=== PATIENT | female | born 1935 | race Caucasian/White ===

== ENCOUNTER 2017-10-14 07:02 | Day surgery (SDC) | payer OTHER ==
[2017-10-14] MEDS ORDERED: BUPIVACAINE 0.25% PF 10 ML VIAL ONE (07:45)
[2017-10-14] MEDS ORDERED: LIDOCAINE 2% MPF 5 ML VIAL ONE (07:45)
[2017-10-14] MEDS ORDERED: TETRACAINE HCL 0.5% 2ML OPTH ONE (07:46)
[2017-10-14] MEDS ORDERED: NA CHLORIDE 0.9% 500 ML ONE (07:46)
[2017-10-14] MEDS ORDERED: LIDOCAINE HCL/PF 3.5% OPTH GEL ONE (07:51)
[2017-10-14] MEDS ORDERED: KETOROLAC OPTHALMIC 5 ML BOT ONE (07:55)
[2017-10-14] MEDS: CYCLOPENTOLATE 1% OPTH 2 ML ONE ×3 (08:00→08:10)
[2017-10-14] MEDS: PHENYLEPHRINE 10% OPTH 5ML ONE ×3 (08:00→08:10)
[2017-10-14] MEDS ORDERED: NS 0.9% VIAL 10 ML ONE (08:04)
[2017-10-14] MEDS ORDERED: EPINEPHRINE/PF 1 MG/ML AMP ONE (08:04)
[2017-10-14] MEDS ORDERED: DUOVISC 1 KIT OPTH ONE (08:05)
[2017-10-14] MEDS ORDERED: BALANCED SALT IRRIG PLAIN 500 ML BTL IRR ONE (08:05)
[2017-10-14] MEDS ORDERED: LIDOCAINE 1% MPF 2 ML AMPULE ONE (08:06)
[2017-10-14] MEDS ORDERED: MOXIFLOXACIN HCL 10 DROPS/ML **OR USE OPTH ONE (08:07)
[2017-10-14 08:22] VITALS: O2SAT 98
[2017-10-14] MEDS ORDERED: FENTANYL CITR 100 MCG/2 ML ONE (08:37)
[2017-10-14] MEDS ORDERED: MIDAZOLAM HCL 2 MG/2 ML INJ ONE (08:38)
[2017-10-14 09:14] VITALS: BP 170/69; TEMP 97.6
--- NOTE | 2017-10-14 09:57 | P.BOP ---
Preoperative diagnosis: Nuclear sclerotic cataract OS Postoperative diagnosis: Same Primary procedure: Phacoemulsification with IOL OS Estimated blood loss: None Anesthesia: Local (Topical with anesthesia for cataract surgery) Complications: None Implants: ZCB00 +22.0 Transferred to: Other (Day surgery) Condition: Good
--- NOTE | 2017-10-14 20:58 | OP ---
Date of Procedure: 10/14/2017 Surgeon: Emma Randolph MD Anesthesiologist: 1. Carlie Tran CRNA. 2. Lukasz Shay M.D. Preoperative Diagnosis: Nuclear sclerotic cataract, OS (left eye). Operation Performed: Phacoemulsification with intraocular lens implant, OS eye (left eye). Anesthesia: Per cataract surgery Complications: None. Description Of Procedure: In the operating room the patient was prepped and draped in the usual ster ile fashion for ophthalmic surgery. A lid speculum was placed in the OS. Two paracentesis sites wer e made superiorly and inferiorly in the limbal cornea. Viscoat was placed in the anterior chamber an d a crescent blade was used to make a corneal groove and tunnel, and a keratome was used to enter the anterior chamber. Provisc was placed in the anterior chamber and a 360 degree capsulotomy was perfo rmed with a cystitome. The lens was hydrodissected with BSS and rotated freely. The lens was remove d with a stop and chop technique. A 5.20 phaco CDE was used to remove the lens. Residual cortex was removed with the irrigation and aspiration. Provisc was placed in the capsular bag. A ZCB00 + 22.0 diopter lens was placed in the capsular bag without complications. Irrigation and aspiration were u sed to remove residual viscoelastic. The paracentesis sites were hydrated with BSS. The wound and p aracentesis sites were inspected and found to be watertight. Vigamox 0.07 cc was placed intracameral ly at the end of the procedure. The eye was irrigated with balanced salt solution. The eye was patc hed with a soft cotton patch and Pereira metal shield. The patient was returned to day surgery in good condition. Comments: Akten was placed in the eye in Day Surgery and irrigated out of the eye with BSS in the OR . Preservative free 1% lidocaine was placed in the anterior chamber prior to Viscoat. Discharge Instructions: Ms. Omer is discharged to home in good condition and is to follow up with Dr. Randolph in the morning. RAMANDEEP/MODL Voice ID: [id number] Report ID: [id number]
== END 2017-10-14 09:33 | disposition home or self-care (01) ==
LOC: OR 07:02
PROVIDERS: ATTEND Ophthalmology Retina Specialist
PROC: 08RK3JZ Replacement of Left Lens with Synthetic Substitute, Percutaneous Approach (ICD-10-PCS; principal; 2017-10-14 08:30)
DX: H25.12 Age-related nuclear cataract, left eye (principal); H04.123 Dry eye syndrome of bilateral lacrimal glands; H43.813 Vitreous degeneration, bilateral; M19.90 Unspecified osteoarthritis, unspecified site; Z88.6 Allergy status to analgesic agent; Z88.8 Allergy status to other drugs, medicaments and biological substances; Z82.3 Family history of stroke; Z82.49 Family history of ischemic heart disease and other diseases of the circulatory system
CPT/HCPCS: 66984; J0171; J2001; J2250; J3010

== ENCOUNTER 2017-10-30 22:23 | Emergency (ER) | payer OTHER ==
[2017-10-30] MEDS ORDERED: NA CHLORIDE 0.9% 500 ML ONE (23:23)
[2017-10-30] MEDS ORDERED: ONDANSETRON 4 MG/2 ML VIAL ONE (23:23)
[2017-10-30 23:36] LABS: Potassium 3.6 mEq/L (3.6-5.0)
--- NOTE | 2017-10-31 00:49 | EDPHYS ---
Physician Documentation [facility] Name: Serenity Omer Age: 82 yrs Sex: Female : 1935 Arrival Date: 10/30/2017 Time: 22:23 Bed 19 Private MD: ED Physician Hank Dowd HPI: 10/30 23:10 This 82 yrs old Female presents to ER via Wheelchair with complaints of rn Nausea, Allergic Reaction. 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 . Historical: - Allergies: 22:41 all dyes and preservatives; jd3 22:41 Iodine; jd3 - Home Meds: 22:41 aspirin 81 mg Oral chew 1 tab once daily [Active]; jd3 - PMHx: 22:41 Atrial Fib; jd3 - PSHx: 22:41 None; jd3 - Immunization history:: Adult Immunizations up to date. - Social history:: Smoking status: Patient/guardian denies using tobacco. - Family history:: not pertinent. - Hospitalizations: : No recent hospitalization is reported. ROS: 23:10 Constitutional: Negative for fever, chills, and weight loss, Eyes: Negative for injury, rn pain, redness, and discharge, Neck: Negative for injury, pain, and swelling, Cardiovascular: Negative for chest pain, palpitations, and edema, Respiratory: Negative for shortness of breath, cough, wheezing, and pleuritic chest pain, Abdomen/GI: Negative for abdominal pain, vomiting, diarrhea, and constipation, Back: Negative for injury and pain, MS/Extremity: Negative for injury and deformity, Skin: Negative for injury, rash, and discoloration, Neuro: Negative for headache, weakness, numbness, tingling, and seizure. Exam: 23:10 Constitutional: This is a well developed, well nourished patient who is awake, alert, rn and in no acute distress. Head/Face: Normocephalic, atraumatic. Eyes: Pupils equal round and reactive to light, extra-ocular motions intact. Lids and lashes normal. Conjunctiva and sclera are non-icteric and not injected. Cornea within normal limits. Periorbital areas with no swelling, redness, or edema. Neck: Trachea midline, no thyromegaly or masses palpated, and no cervical lymphadenopathy. Supple, full range of motion without nuchal rigidity, or vertebral point tenderness. No Meningismus. Cardiovascular: Regular rate and rhythm with a normal S1 and S2. No gallops, murmurs, or rubs. Normal PMI, no JVD. No pulse deficits. Respiratory: Lungs have equal breath sounds bilaterally, clear to auscultation and percussion. No rales, rhonchi or wheezes noted. No increased work of breathing, no retractions or nasal flaring. Abdomen/GI: Soft, non-tender, with normal bowel sounds. No distension or tympany. No guarding or rebound. No evidence of tenderness throughout. Skin: Warm, dry with normal turgor. Normal color with no rashes, no lesions, and no evidence of cellulitis. MS/ Extremity: Pulses equal, no cyanosis. Neurovascular intact. Full, normal range of motion. Equal circumference. Neuro: Awake and alert, GCS 15, oriented to person, place, time, and situation. Cranial nerves II-XII grossly intact. Motor strength 5/5 in all extremities. Sensory grossly intact. Cerebellar exam normal. Vital Signs: 22:41 BP 124 / 51; Pulse 51; Resp 18 S; Temp 97.7(O); Pulse Ox 98% on R/A; Weight 63.5 kg jd3 (R); Height 5 ft. 7 in. (170.18 cm) (R); Pain 0/10; 10/31 00:00 BP 164 / 66; Pulse 51; Resp 17 S; Pulse Ox 100% on R/A; Pain 0/10; jd3 10/30 22:41 Body Mass Index 21.93 (63.50 kg, 170.18 cm) jd3 MDM: 10/30 22:35 Patient medically screened. rn 10/31 00:47 Differential diagnosis: medication adverse reaction, UTI. Data reviewed: vital signs, rn nurses notes, lab test result(s), EKG, and as a result, I will discharge patient. Counseling: I had a detailed discussion with the patient and/or guardian regarding: the historical points, exam findings, and any diagnostic results supporting the discharge/admit diagnosis, lab results, the need for outpatient follow up, to return to the emergency department if symptoms worsen or persist or if there are any questions or concerns that arise at home. Response to treatment: the patient's condition has returned to base line, the patient is now symptom free, patient is well hydrated. and as a result, I will discharge patient. Special discussion: I discussed with the patient/guardian in detail that at this point there is no indication for admission to the hospital. It is understood, however, that if the symptoms persist or worsen the patient needs to return immediately for re-evaluation. 10/30 22:50 Order name: Basic Metabolic Panel; Complete Time: 23:40 rn 10/31 00:49 Order name: Urine Dipstick--Ancillary (enter results) fc 10/30 22:50 Order name: EKG; Complete Time: 22:50 rn 10/30 22:50 Order name: IV Start; Complete Time: 23:02 rn 10/30 22:50 Order name: Urine Dipstick-Ancillary (obtain specimen); Complete Time: 00:49 rn 10/30 22:50 Order name: EKG - Nurse/Tech; Complete Time: 23:02 rn Administered Medications: 10/30 23:12 Drug: Zofran 4 mg Route: IVP; Site: right antecubital; jd3 23:32 Follow up: Response: Nausea is decreased jd3 23:12 Drug: NS 0.9% 500 ml Route: IV; Rate: bolus; Site: right antecubital; jd3 23:32 Follow up: Response: No adverse reaction; IV Status: Completed infusion; IV Intake: jd3 500ml 10/31 00:55 Drug: Macrobid 100 mg Route: PO; jd3 00:55 Follow up: Response: Medication administered at discharge. jd3 Disposition: 10/31/17 00:48 Discharged to Home. Impression: Medication Adverse Reaction, Urinary tract infection, site not specified. - Condition is Stable. - Discharge Instructions: Urinary Tract Infection. - Prescriptions for Macrobid 100 mg Oral Capsule - take 1 capsule by ORAL route every 12 hours for 7 days; 14 capsule. - Medication Reconciliation Form, Thank You Letter, Antibiotic Education, Prescription Opioid Use form. - Follow up: Private Physician; When: As needed; Reason: Recheck today's complaints, Re-evaluation by your physician. - Problem is new. - Symptoms have improved. Signatures: Dispatcher [employer] EDMS Dowd Hank, MD MD rn Ball, VJ Davidson RN jd3
--- NOTE | 2017-10-31 00:49 | ER ---
Nurse's Notes [facility] Name: Serenity Omer Age: 82 yrs Sex: Female : 1935 Arrival Date: 10/30/2017 Time: 22:23 Bed 19 Private MD: Diagnosis: Medication Adverse Reaction;Urinary tract infection, site not specified Presentation: 10/30 22:37 Presenting complaint: Patient states: "I took a medication, Ropinirole, and I got very jd3 dizzy and nauseous. I think I might be allergic.". Transition of care: patient was not received from another setting of care. Onset of symptoms was October 30, 2017. Care prior to arrival: None. 22:37 Method Of Arrival: Wheelchair jd3 22:37 Acuity: JOSE 3 jd3 Historical: - Allergies: 22:41 all dyes and preservatives; jd3 22:41 Iodine; jd3 - Home Meds: 22:41 aspirin 81 mg Oral chew 1 tab once daily [Active]; jd3 - PMHx: 22:41 Atrial Fib; jd3 - PSHx: 22:41 None; jd3 - Immunization history:: Adult Immunizations up to date. - Social history:: Smoking status: Patient/guardian denies using tobacco. - Family history:: not pertinent. - Hospitalizations: : No recent hospitalization is reported. Screenin:44 Abuse screen: Denies threats or abuse. Nutritional screening: No deficits noted. jd3 Tuberculosis screening: No symptoms or risk factors identified. Fall Risk No fall in past 12 months (0 pts). Gait- Weak (10 pts.). Total George Fall Scale indicates No Risk (0-24 pts). Assessment: 22:42 General: Appears in no apparent distress. uncomfortable, Behavior is calm, cooperative, jd3 appropriate for age. Pain: Denies pain. Neuro: Neuro: Level of Consciousness is awake, alert, obeys commands, Oriented to person, place, time, situation. Cardiovascular: Heart tones S1 S2 present Capillary refill < 3 seconds. Respiratory: Airway is patent Respiratory effort is even, unlabored, Respiratory pattern is regular, symmetrical, Breath sounds are clear bilaterally. GI: Abdomen is round Bowel sounds present X 4 quads. Abd is soft and non tender X 4 quads. Reports nausea. : No signs and/or symptoms were reported regarding the genitourinary system. EENT: No signs and/or symptoms were reported regarding the EENT system. Derm: Skin is intact, Skin is dry, Skin is normal, Skin temperature is warm. Musculoskeletal: Circulation, motion, and sensation intact. Range of motion: intact in all extremities. 10/31 00:00 Reassessment: Patient appears in no apparent distress at this time. Patient and/or jd3 family updated on plan of care and expected duration. Pain level reassessed. Patient is alert, oriented x 3, equal unlabored respirations, skin warm/dry/pink. Patient states feeling better. 01:04 Reassessment: Patient appears in no apparent distress at this time. Patient and/or jd3 family updated on plan of care and expected duration. Pain level reassessed. Patient is alert, oriented x 3, equal unlabored respirations, skin warm/dry/pink. pt reported understanding of discharge instructions, even and steady gait upon discharge Patient states feeling better. Vital Signs: 10/30 22:41 BP 124 / 51; Pulse 51; Resp 18 S; Temp 97.7(O); Pulse Ox 98% on R/A; Weight 63.5 kg jd3 (R); Height 5 ft. 7 in. (170.18 cm) (R); Pain 0/10; 10/31 00:00 BP 164 / 66; Pulse 51; Resp 17 S; Pulse Ox 100% on R/A; Pain 0/10; jd3 10/30 22:41 Body Mass Index 21.93 (63.50 kg, 170.18 cm) jd3 ED Course: 10/30 22:23 Patient arrived in ED. ds1 22:26 Stuart Ball, RN is Primary Nurse. jd3 22:35 Hank Dowd MD is Attending Physician. rn 22:40 Triage completed. jd3 22:42 Arm band placed on. jd3 22:45 Patient has correct armband on for positive identification. Bed in low position. Call j light in reach. Side rails up X2. Adult w/ patient. 23:03 Initial lab(s) drawn, by me, sent to lab. Inserted saline lock: 20 gauge in right cb2 forearm, using aseptic technique. Blood collected. 10/31 01:03 No provider procedures requiring assistance completed. IV discontinued, intact, jd3 bleeding controlled, No redness/swelling at site. Pressure dressing applied. Administered Medications: 10/30 23:12 Drug: Zofran 4 mg Route: IVP; Site: right antecubital; jd3 23:32 Follow up: Response: Nausea is decreased jd3 23:12 Drug: NS 0.9% 500 ml Route: IV; Rate: bolus; Site: right antecubital; jd3 23:32 Follow up: Response: No adverse reaction; IV Status: Completed infusion; IV Intake: jd3 500ml 10/31 00:55 Drug: Macrobid 100 mg Route: PO; jd3 00:55 Follow up: Response: Medication administered at discharge. jd3 Intake: 10/30 23:32 IV: 500ml; Total: 500ml. jd3 Outcome: 10/31 00:48 Discharge ordered by . rn 01:03 Discharged to home ambulatory, with family. jd3 01:03 Condition: stable 01:03 Discharge instructions given to patient, friend, Instructed on discharge instructions, follow up and referral plans. medication usage, Demonstrated understanding of instructions, follow-up care, medications, Prescriptions given X 1. 01:05 Patient left the ED. jd3 Signatures: Annalee Pena ds1 Hank Dowd MD MD rn Bulan, Christian cb2 Davies, Jonathon, RN RN jd3 Corrections: (The following items were deleted from the chart) 10/30 23:32 23:31 Response: No adverse reaction; Nausea is decreased; IV Status: Completed jd3 infusion; IV Intake: 500ml jd3
[2017-10-31] MEDS ORDERED: NITROFURAN MACRO 100 MG CAP PO ONE (01:13)
[2017-10-31 01:22] LABS: Urine Blood NEGATIVE (NEG); Urine Glucose NEGATIVE (NEG); Urine Protein NEGATIVE (NEG); Urine Specific Gravity 1.015 (1.005-1.030); Urine pH 7.5 (5.0-7.0)
[2017-10-31 01:27] VITALS: TEMP 97.7
[2017-10-31 01:28] VITALS: BP 164/66; O2SAT 100
--- NOTE | 2017-10-31 10:08 | EKG ---
Test Date: 2017-10-30 Test Time: 22:58:15 Booster Operator: NOREEN MEASUREMENT RESULTS: Intervals: Rate: 49 AK: 280 QRSD: 88 QT: 476 QTc: 429 [place]: P: 13 AK: 280 QRS: -11 T: 24 INTERPRETIVE STATEMENTS: Sinus bradycardia with 1st degree AV block Anteroseptal infarct, age undetermined Abnormal ECG Compared to ECG 04/07/2017 06:54:31 Atrial premature complex(es) no longer present Myocardial infarct finding still present Electronically Signed On 10-31-17 10:07:40 CDT by Irvin Stallings
== END 2017-10-31 01:05 | disposition home or self-care (01) ==
LOC: ER 22:23
DX: N39.0 Urinary tract infection, site not specified (principal); T42.8X5A Adverse effect of antiparkinsonism drugs and other central muscle-tone depressants, initial encounter; Z79.82 Long term (current) use of aspirin; I48.91 Unspecified atrial fibrillation; Z91.048 Other nonmedicinal substance allergy status
CPT/HCPCS: 36415; 80048; 81003; 93005; 96374; 99284; J2405

== ENCOUNTER 2018-04-05 10:37 | Observation (INO) | payer OTHER ==
[2018-04-05 11:29] LABS: Absolute Lymphocytes (CBC) 0.9 K/uL (0.7-4.9); Absolute Monocytes 0.5 K/uL (0.1-1.3); Absolute Neutrophil 1.7 K/uL (1.8-8.0); Basophils % 0.4 % (0-1.3); Eosinophils % 1.4 % (0-4.4); Hematocrit 37.1 % (36.0-45.0); Lymphocytes % 28.8 % (15.3-44.8); MCH 34.7 pg (27.0-35.0); MCV 98.6 fL (80-100); Monocytes % 16.3 % (3.3-12.3); RBC Red Blood Cell Count 3.76 M/uL (3.86-4.86)
[2018-04-05 11:48] LABS: ALT/SGPT 26 U/L (12-78); AST/SGOT 28 U/L (15-37); Albumin 4.1 g/dL (3.4-5.0); Alkaline Phosphatase 87 U/L (45-117); BUN Blood Urea Nitrogen 17 mg/dL (7-18); Bicarbonate 27 mmol/L (21-32); Bilirubin Direct 0.2 mg/dL (0-0.2); Bilirubin Total 0.7 mg/dL (0.2-1.0); CKMB Creatine Kinase MB 2.5 ng/mL (0.3-3.6); Creatine Phosphokinase 110 U/L (26-192); Glucose Level 89 mg/dL (74-106); NT PRO-BNP 442 pg/mL (<450); Potassium 4.1 mmol/L (3.5-5.1); Protein, Total 8.2 g/dL (6.4-8.2); Sodium Level 130 mmol/L (136-145); Troponin (Emerg Dept Use Only) < 0.02 ng/mL (0.0-0.045)
[2018-04-05 12:06] LABS: Blood Morphology Comment NOT SEEN (NOT SEEN); Platelet Estimate ADEQ; Urine White Blood Cell Casts OK
--- NOTE | 2018-04-05 12:18 | RAD REPORT ---
EXAM DESCRIPTION: RAD - Chest Single View - 04/05/2018 12:09 pm CLINICAL HISTORY: CHEST PAIN Chest pain. COMPARISON: Chest Single View dated 04/06/2017 FINDINGS: Portable technique limits examination quality. The lungs are grossly clear. The heart is normal in size. No displaced fractures.Tortuous thoracic ao rta. Significant scoliosis of the thoracic spine with concavity to the right. IMPRESSION: No acute intrathoracic process suspected.
--- NOTE | 2018-04-05 12:40 | EDPHYS ---
Physician Documentation [facility] Name: Serenity Omer Age: 83 yrs Sex: Female : 1935 Arrival Date: 04/05/2018 Time: 10:39 Bed 2 Private MD: Aidan Rodriguez R ED Physician Hank Dowd HPI: 04/05 11:05 This 83 yrs old Female presents to ER via Ambulatory with complaints of Chest rn Pain, Irregular Heartbeat. 11:05 The patient or guardian reports chest pain that is located primarily in the substernal rn area. Onset: this morning. The pain does not radiate. Associated signs and symptoms: Pertinent positives: nausea, shortness of breath, Pertinent negatives: cough, diaphoresis, lower extremity swelling, recent travel, syncope, vomiting. The chest pain is described as a heaviness, a pressure. Duration: The patient or guardian reports a single episode, that is still ongoing. Severity of pain: At its worst the pain was moderate in the emergency department the pain has improved. The patient has not experienced similar symptoms in the past. The patient has not recently seen a physician. Historical: - Allergies: 10:54 all dyes and preservatives; sr5 10:54 Iodine; sr5 - Home Meds: 10:54 aspirin 81 mg Oral chew 1 tab once daily [Active]; omeprazole [Active]; sr5 - PMHx: 10:54 Atrial Fib; sr5 - PSHx: 10:54 None; sr5 - Immunization history:: Adult Immunizations up to date. - Family history:: not pertinent. - Social history:: Smoking status: Patient/guardian denies using tobacco. - Ebola Screening: : No symptoms or risks identified at this time. - Hospitalizations: : No recent hospitalization is reported. ROS: 11:05 Constitutional: Negative for fever, chills, and weight loss, Eyes: Negative for injury, rn pain, redness, and discharge, Neck: Negative for injury, pain, and swelling, Cardiovascular: + chest tightness Respiratory: + sob, no cough Abdomen/GI: Negative for abdominal pain, vomiting, diarrhea, and constipation, MS/Extremity: Negative for injury and deformity, Skin: Negative for injury, rash, and discoloration, Neuro: Negative for headache, weakness, numbness, tingling, and seizure. Exam: 11:25 Constitutional: This is a well developed, well nourished patient who is awake, alert, rn and in no acute distress. Head/Face: Normocephalic, atraumatic. Eyes: Pupils equal round and reactive to light, extra-ocular motions intact. Lids and lashes normal. Conjunctiva and sclera are non-icteric and not injected. Cornea within normal limits. Periorbital areas with no swelling, redness, or edema. Neck: Trachea midline, no thyromegaly or masses palpated, and no cervical lymphadenopathy. Supple, full range of motion without nuchal rigidity, or vertebral point tenderness. No Meningismus. Cardiovascular: Regular rate and rhythm with a normal S1 and S2. No gallops, murmurs, or rubs. Normal PMI, no JVD. No pulse deficits. Respiratory: Lungs have equal breath sounds bilaterally, clear to auscultation and percussion. No rales, rhonchi or wheezes noted. No increased work of breathing, no retractions or nasal flaring. Abdomen/GI: Soft, non-tender MS/ Extremity: Pulses equal, no cyanosis. Neurovascular intact. Full, normal range of motion. Equal circumference. Neuro: Awake and alert, GCS 15, oriented to person, place, time, and situation. Cranial nerves II-XII grossly intact. Motor strength 5/5 in all extremities. Sensory grossly intact Vital Signs: 10:54 BP 175 / 81; Pulse 61; Resp 14; Temp 98.2; Pulse Ox 100% ; Weight 63.5 kg; Height 5 ft. sr5 7 in. (170.18 cm); Pain 0/10; 11:45 BP 190 / 65; Pulse 52; Resp 14; Pulse Ox 100% on R/A; hb 10:54 Body Mass Index 21.93 (63.50 kg, 170.18 cm) sr5 MDM: 10:52 Patient medically screened. rn 12:38 Differential diagnosis: acute myocardial infarction, acute pericarditis, anxiety, rn coronary artery disease chest wall pain, costochondritis, gastritis, pleurisy, pneumonia, pneumothorax, stable angina. Data reviewed: vital signs, nurses notes, lab test result(s), EKG, radiologic studies, plain films, and as a result, I will admit patient. Counseling: I had a detailed discussion with the patient and/or guardian regarding: the historical points, exam findings, and any diagnostic results supporting the discharge/admit diagnosis, lab results, radiology results, the need for further work-up and treatment in the hospital. Response to treatment: the patient's symptoms have mildly improved after treatment, and as a result, I will admit patient. Admission orders: after a detailed discussion of the patient's condition and case, the admit orders are written by me. 04/05 11:03 Order name: Basic Metabolic Panel; Complete Time: 11:51 rn 04/05 11:03 Order name: CBC with Diff; Complete Time: 12: rn 04/05 11:03 Order name: Ckmb; Complete Time: : rn 04/05 11:03 Order name: CPK; Complete Time: : rn 04/05 11:03 Order name: LFT's; Complete Time: : rn 04/05 11:03 Order name: NT PRO-BNP; Complete Time: 11: rn 04/05 10:55 Order name: EKG; Complete Time: 10:56 sr5 04/05 10:55 Order name: EKG - Nurse/Tech; Complete Time: 11:15 sr5 04/05 11:03 Order name: Troponin (emerg Dept Use Only); Complete Time: 11:51 rn 04/05 11:03 Order name: XRAY Chest (1 view); Complete Time: 12:19 rn 04/05 11:03 Order name: Cardiac monitoring; Complete Time: 11:15 rn 04/05 11:03 Order name: IV Saline Lock; Complete Time: 11:15 rn 04/05 11:03 Order name: Labs collected and sent; Complete Time: 11: rn 04/05 11:44 Order name: CBC Smear Scan; Complete Time: 12:07 EDMS 04/05 11:03 Order name: O2 Per Protocol; Complete Time: 12: rn 04/05 11:03 Order name: O2 Sat Monitoring; Complete Time: 12:08 rn Administered Medications: No medications were administered Disposition: 04/05/18 12:39 Hospitalization ordered by Aidan Rodriguez for Observation. Preliminary diagnosis are Chest pain, unspecified, Bradycardia, unspecified. - Bed requested for Telemetry/MedSurg (observation). - Status is Observation. iw - Condition is Stable. - Problem is new. - Symptoms have improved. UTI on Admission? No Signatures: Dispatcher [employer] EDBrooklyn Canas, RN RN iw Hank Dowd MD MD rn Baxter, Heather, RN RN Eddy Mercado RN RN sr5 Haleigh Cruz Corrections: (The following items were deleted from the chart) 12:58 12:39 Hospitalization Ordered by Aidan Rodriguez MD for Observation. Preliminary diagnosis eb is Chest pain, unspecified; Bradycardia, unspecified. Bed requested for Telemetry/MedSurg (observation). Status is Observation. Condition is Stable. Problem is new. Symptoms have improved. UTI on Admission? No. rn 14:00 12:58 04/05/2018 12:39 Hospitalization Ordered by Aidan Rodriguez MD for Observation. iw Preliminary diagnosis is Chest pain, unspecified; Bradycardia, unspecified. Bed requested for Telemetry/MedSurg (observation). Status is Observation. Condition is Stable. Problem is new. Symptoms have improved. UTI on Admission? No. eb
--- NOTE | 2018-04-05 12:40 | ER ---
Nurse's Notes [facility] Name: Serenity Omer Age: 83 yrs Sex: Female : 1935 Arrival Date: 04/05/2018 Time: 10:39 Bed 2 Private MD: Aidan Rodriguez R Diagnosis: Chest pain, unspecified;Bradycardia, unspecified Presentation: 04/05 10:53 Presenting complaint: Patient states: chest pressure/SOB started early this AM. sr5 PMH=afib, pt AA\T\Ox4, equal unlabored resp, skin warm/dry/nc. Transition of care: patient was not received from another setting of care. Onset of symptoms was April 05, 2018. Care prior to arrival: None. 10:53 Acuity: JOSE 2 sr5 10:53 Method Of Arrival: Ambulatory sr5 11:00 Risk Assessment: Do you want to hurt yourself or someone else? Patient reports no hb desire to harm self or others. Initial Sepsis Screen: Does the patient meet any 2 criteria? No. Patient's initial sepsis screen is negative. Does the patient have a suspected source of infection? No. Patient's initial sepsis screen is negative. Triage Assessment: 10:54 General: Appears in no apparent distress. Behavior is calm, cooperative. Pain: Denies sr5 pain. Complains of pain in chest Quality of pain is described as pressure. Cardiovascular: Patient's skin is warm and dry. Respiratory: Respiratory effort is even, unlabored, Respiratory pattern is regular, symmetrical. Historical: - Allergies: 10:54 all dyes and preservatives; sr5 10:54 Iodine; sr5 - Home Meds: 10:54 aspirin 81 mg Oral chew 1 tab once daily [Active]; omeprazole [Active]; sr5 - PMHx: 10:54 Atrial Fib; sr5 - PSHx: 10:54 None; sr5 - Immunization history:: Adult Immunizations up to date. - Family history:: not pertinent. - Social history:: Smoking status: Patient/guardian denies using tobacco. - Ebola Screening: : No symptoms or risks identified at this time. - Hospitalizations: : No recent hospitalization is reported. Screenin:00 Abuse screen: Denies threats or abuse. Denies injuries from another. Nutritional hb screening: No deficits noted. Tuberculosis screening: No symptoms or risk factors identified. Fall Risk Total George Fall Scale indicates No Risk (0-24 pts). Assessment: 11:00 General: Appears in no apparent distress. Behavior is calm, cooperative. Pain: hb Complains of pain in chest Pain does not radiate. Pain currently is 0 out of 10 on a pain scale. at worst was 3 out of 10 on a pain scale. Quality of pain is described as pressure, Pain began gradually, 4 hours ago. Neuro: Level of Consciousness is awake, alert, obeys commands, Oriented to person, place, time, situation. Cardiovascular: Heart tones S1 S2 present Capillary refill < 3 seconds Patient's skin is warm and dry. Respiratory: Airway is patent Trachea midline Respiratory effort is even, unlabored, Respiratory pattern is regular, symmetrical, Breath sounds are clear bilaterally. GI: No signs and/or symptoms were reported involving the gastrointestinal system. : No signs and/or symptoms were reported regarding the genitourinary system. EENT: No signs and/or symptoms were reported regarding the EENT system. Derm: No signs and/or symptoms reported regarding the dermatologic system. Skin is intact, is healthy with good turgor. 11:40 Reassessment: HR 35-55, Dr. Dowd aware. No new orders at this time. hb 12:00 Reassessment: Patient appears in no apparent distress at this time. No changes from hb previously documented assessment. Patient and/or family updated on plan of care and expected duration. Pain level reassessed. Patient is alert, oriented x 3, equal unlabored respirations, skin warm/dry/pink. Vital Signs: 10:54 BP 175 / 81; Pulse 61; Resp 14; Temp 98.2; Pulse Ox 100% ; Weight 63.5 kg; Height 5 ft. sr5 7 in. (170.18 cm); Pain 0/10; 11:45 BP 190 / 65; Pulse 52; Resp 14; Pulse Ox 100% on R/A; hb 10:54 Body Mass Index 21.93 (63.50 kg, 170.18 cm) sr5 ED Course: 10:39 Patient arrived in ED. as 10:39 Aidan Rodriguez MD is Private Physician. as 10:52 Hank Dowd MD is Attending Physician. rn 10:54 Triage completed. sr5 10:54 Arm band placed on. EKG completed in triage. Results shown to MD. sr5 11:07 EKG done, by ED staff, reviewed by Hank Dowd MD. Inserted saline lock: 20 gauge in em1 right forearm, using aseptic technique. Blood collected. 11:11 Rin Blackburn, RN is Primary Nurse. hb 11:15 Initial lab(s) drawn, by me, sent to lab. em1 12:09 XRAY Chest (1 view) In Process Unspecified. EDMS 12:39 Aidan Rodriguez MD is Hospitalizing Provider. rn Administered Medications: No medications were administered Outcome: 12:39 Decision to Hospitalize by Provider. rn 14:00 Patient left the ED. iw Signatures: Dispatcher [employer] EDCO Elvira Handley Irene, RN Hank Elizondo MD MD rn William Handley em1 Rin Blackburn, RN RN Eddy Villela RN RN sr5
[2018-04-05] MEDS ORDERED: ONDANSETRON 4 MG/2 ML VIAL IV PRN (13:51)
[2018-04-05 15:08] VITALS: BMI 21.9
[2018-04-05 17:39] LABS: Urine Appearance CLOUDY; Urine Bilirubin NEGATIVE (NEG); Urine Blood NEGATIVE (NEG); Urine Color YELLOW; Urine Glucose NEGATIVE (NEG); Urine Protein NEGATIVE (NEG); Urine Specific Gravity <=1.005 (1.005-1.030); Urine Urobilinogen 0.2 mg/dL (0.2-1.0); Urine pH 7.5 (5.0-7.0)
[2018-04-05] MEDS: NITROGLYCERIN 1 GM PKT TD SCH (17:42)
[2018-04-05 18:29] LABS: Urine Bacteria 20-50 /HPF (<20); Urine Culture Reflex Order REFLEXED; Urine RBC <5 /HPF (NONE SEEN)
[2018-04-06] MEDS: NITROGLYCERIN 1 GM PKT TD SCH ×4 (01:00→17:56)
[2018-04-06 06:49] LABS: Potassium 3.9 mmol/L (3.5-5.1)
[2018-04-06 07:09] LABS: Absolute Lymphocytes (CBC) 1.3 K/uL (0.7-4.9); Absolute Monocytes 0.6 K/uL (0.1-1.3); Absolute Neutrophil 2.5 K/uL (1.8-8.0); Basophils % 0.6 % (0-1.3); Eosinophils % 1.8 % (0-4.4); Hematocrit 34.8 % (36.0-45.0); MCH 34.5 pg (27.0-35.0); MCV 98.3 fL (80-100); MPV 8.6 fL (7.6-11.3); Monocytes % 13.1 % (3.3-12.3); RBC Red Blood Cell Count 3.55 M/uL (3.86-4.86)
--- NOTE | 2018-04-06 08:53 | EKG ---
Test Date: 2018-04-06 Test Time: 08:32:30 Health Information Manager: ANTHONY MEASUREMENT RESULTS: Intervals: Rate: 54 [place]: 320 QRSD: 90 QT: 502 QTc: 476 [place]: P: 63 [place]: 320 QRS: -10 T: 5 INTERPRETIVE STATEMENTS: Sinus bradycardia with 1st degree AV block Otherwise normal ECG Compared to ECG 04/05/2018 11:33:51 Myocardial infarct finding no longer present Electronically Signed On 04-06-18 08:52:27 CDT by Irvin Stallings
--- NOTE | 2018-04-06 08:54 | EKG ---
Test Date: 2018-04-05 Test Time: 11:33:51 Csr Retail: JYOTSNA MEASUREMENT RESULTS: Intervals: Rate: 54 [place]: 274 QRSD: 80 QT: 436 QTc: 413 [place]: P: 54 [place]: 274 QRS: 5 T: 25 INTERPRETIVE STATEMENTS: Sinus bradycardia with 1st degree AV block Septal infarct, age undetermined Abnormal ECG Compared to ECG 04/05/2018 10:55:17 No significant changes Electronically Signed On 04-06-18 08:52:45 CDT by Irvin Stallings
--- NOTE | 2018-04-06 08:54 | EKG ---
Test Date: 2018-04-05 Test Time: 10:55:17 Metal Buildings Assembler: JYOTSNA MEASUREMENT RESULTS: Intervals: Rate: 56 [place]: 262 QRSD: 90 QT: 422 QTc: 407 [place]: P: 75 [place]: 262 QRS: 9 T: 23 INTERPRETIVE STATEMENTS: Sinus bradycardia with 1st degree AV block Septal infarct, age undetermined Abnormal ECG Compared to ECG 10/30/2017 22:58:15 No significant changes Electronically Signed On 04-06-18 08:52:49 CDT by Irvin Stallings
[2018-04-06] MEDS ORDERED: ACETAMINOPHEN 500 MG TAB PO PRN (13:58)
[2018-04-06] MEDS ORDERED: predniSONE 20 MG TAB PO ONE (18:00)
[2018-04-07] MEDS: NITROGLYCERIN 1 GM PKT TD SCH ×2 (00:28→05:08)
[2018-04-07] MEDS ORDERED: NA CHLORIDE 0.9% 1,000 ML ONE (04:59)
--- NOTE | 2018-04-07 05:49 | HP ---
Date of Admission: 04/05/2018 Chief Complaint: Chest pain. History Of Present Illness: An 83-year-old female was brought to the emergency room because of recur rent chest pains. She was found to have evidence of bradycardia. The patient is admitted for [facility]. There is no history of fever, chills, rigors, or other symptoms. Past Medical History: Positive for atrial fibrillation. The patient is on aspirin. She also has hi story of acid reflux disease. Family History: Noncontributory. Personal History: Nonsmoker. Allergies: TO IODINE. Home Medicines: Aspirin, omeprazole. Review of Systems: No history of fever, chills, rigors. Physical Examination: General: Reveals an 83-year-old female, very alert for her age. HEENT: Negative. Neck: Supple. JVD negative. Chest: Clear. Heart: Bradycardia. Abdomen: Soft. Extremities: No edema. Assessment: 1.Chest pain. 2.Bradycardia. 3.History of atrial fibrillation. Plan: The patient may have sick sinus syndrome with bradycardia and atrial fibrillation; however, in view of the chest pain, the patient needs definition of coronary status. Cardiology consult has bee n done. She is scheduled for angiogram in a.. JORJE/JOHANA Voice ID: [id number]
[2018-04-07] MEDS ORDERED: predniSONE 20 MG TAB PO ONE (06:00)
[2018-04-07] MEDS ORDERED: LIDOCAINE 1% MPF 2 ML AMPULE ONE (06:28)
[2018-04-07] MEDS ORDERED: HEPA 1000U/500MLS 1,000 UNIT/500 ML BAG IV ONE (06:40)
[2018-04-07] MEDS ORDERED: FENTANYL CITR 100 MCG/2 ML ONE (07:05)
[2018-04-07] MEDS ORDERED: NA CHLORIDE 0.9% 0 ML ONE (07:05)
[2018-04-07] MEDS ORDERED: ATROPINE SULF 1 MG/10 ML SYR IV ONE (07:05)
[2018-04-07] MEDS ORDERED: MIDAZOLAM HCL 2 MG/2 ML INJ ONE (07:05)
[2018-04-07] MEDS ORDERED: METHYLPREDNISOLONE 125 MG INJ ONE (07:19)
[2018-04-07] MEDS ORDERED: LIDOCAINE 1% W/EPI 1:100,000 MDV 50 ML VIAL ONE (07:49)
--- NOTE | 2018-04-07 08:49 | CON ---
Date of Consultation: 04/06/2018 Reason For Consultation: Chest pain. History Of Present Illness: Ms. Omer is an 83-year-old woman, known to us from the practice. Has had paroxysmal atrial fibrillation before intolerant to anticoagulants because of hematuria. She haddad s had a history of TIA in the past. She came in with substernal chest pressure, diaphoresis, describ es the chest pain as heaviness radiating towards the neck with dizziness. Was found to have an EKG w ith a heart rate of 49, which is chronic for her. Ms. Omer is not taking any medication except fo r aspirin, Prilosec, and multiple vitamins. She does not tolerate beta blockade because of her chron ic bradycardia. Does not tolerate anticoagulants because of bleeding. Recently had a stress test in March 2017, which was normal. An echocardiogram then was normal. Her chest x-ray now was paxton l. EKG now shows sinus bradycardia. Her CPKs, MBs and troponins were negative. Past Medical History: As stated earlier. Allergies: TO SULFIDE, ASPIRIN, NONSTEROIDALS, AND IODINE. Medications At Home: As listed earlier. Review of Systems: Negative. Social History: Negative. Family History: Noncontributory. Physical Examination: Vital Signs: Stable. Blood pressure was 161/51. HEENT: Negative. Neck: Supple without any bruit, lymphadenopathy, JVD, or thyromegaly. Chest: Clear to auscultation and percussion. Cardiac: Revealed sinus bradycardia. No gallops or rubs or murmurs. Abdomen: Benign. Extremities: Revealed no clubbing, cyanosis, or edema. Skin: Intact and dry. Pulses in the distal extremities were adequate. Impression And Plan: Mrs. Higginss symptoms are very concerning for unstable angina. She had subst ernal heaviness, pressure with diaphoresis and radiation to the neck. She has already had a stress t est less than a year ago and I am not going to repeat one. I do not think she needs to have another echocardiogram. There is a remote possibility that her symptoms may be related to severe bradycardia or gastroesophageal reflux disease, but I am going to recommend a heart catheterization to rule out coronary artery disease. She understands the risk and the benefit of the procedure and she agrees to proceed. She will be premedicated with prednisone the night before, the morning hours and during th e procedure for her allergies to iodine. If her catheterization is negative, I think an event monito r may be indicated to rule out bradycardia and I think she needs to continue her Prilosec meanwhile. SEVERINO/JOHANA Voice ID: [id number] Report ID: [id number]
[2018-04-07] MEDS ORDERED: NITROGLYCERIN 0.4 MG/TAB SL PRN (10:00)
[2018-04-07] MEDS ORDERED: NA CHLORIDE 0.9% 1,000 ML IV SCH (10:00)
[2018-04-07] MEDS ORDERED: ACETAMINOPHEN 325 MG TABLET PO PRN (10:00)
[2018-04-07 12:11] VITALS: O2SAT 99
[2018-04-07] MEDS ORDERED: AMLODIPINE 5 MG TAB PO ONE (12:17)
[2018-04-07 12:46] VITALS: TEMP 97.9
[2018-04-07 14:53] VITALS: BP 148/54
--- NOTE | 2018-04-07 18:37 | OP ---
Surgeon: Irvin Stallings MD White Sugar Syrup Operator: Eliz Gomez. I will discuss the case further with Dr. Rodriguez. She can go home today and I will see her in the off ce in [address] Rodriguez on 04/05/2018 for unstable angina. The patient was brought to the [facility] on 04/07/2018 as an inpatient. Procedures: Left heart catheterization, selective coronary arteriogram. Indication: With unstable angina type symptoms. The patient is 83. Procedure In Detail: She was prepped and draped in the routine sterile fashion, given 2 mg of Versed and 25 of fentanyl for sedation. A 6-Emirati sheath was introduced in the right common femoral arter y successfully. StarClose was used to close the case. The patient had a very tortuous distal aorta and iliac secondary to severe scoliosis. There were some moderate calcifications in the aorta distal ly. A 6-Emirati Stacie catheter was used to do the coronary angiography. The left main LAD and circ umflex were normal. She had a very short left main. The RCA was very large codominant system, minor plaquing in the mid RCA. There were no complications. Blood Loss: 5 cc. Final Diagnosis: Minimal coronary artery disease. Plan: Medical therapy. Total conscious sedation was 30 minutes. NB/MODL Voice ID: [id number] Report ID: [id number]
--- NOTE | 2018-04-08 00:35 | EKG ---
Test Date: 2018-04-06 Test Time: 08:33:11 Tobacco Sizer: ANTHONY MEASUREMENT RESULTS: Intervals: Rate: 56 [place]: 302 QRSD: 90 QT: 500 QTc: 482 [place]: P: 81 [place]: 302 QRS: -3 T: 16 INTERPRETIVE STATEMENTS: Sinus bradycardia with 1st degree AV block Otherwise normal ECG Compared to ECG 04/06/2018 08:32:30 No significant changes Electronically Signed On 04-08-18 00:32:32 CDT by Irvin Stallings
== END 2018-04-07 15:14 | disposition home or self-care (01) ==
LOC: ER 10:37 → ERHOLD 12:40 → 4TH 13:38
PROVIDERS: ADMIT Internal Medicine; ATTEND Internal Medicine
PROC: 4A023N7 Measurement of Cardiac Sampling and Pressure, Left Heart, Percutaneous Approach (ICD-10-PCS; principal; 2018-04-07)
PROC: B2111ZZ Fluoroscopy of Multiple Coronary Arteries using Low Osmolar Contrast (ICD-10-PCS; 2018-04-07)
DX: I25.10 Atherosclerotic heart disease of native coronary artery without angina pectoris (principal); K21.9 Gastro-esophageal reflux disease without esophagitis; R00.1 Bradycardia, unspecified; I44.0 Atrioventricular block, first degree; Z88.2 Allergy status to sulfonamides; Z88.8 Allergy status to other drugs, medicaments and biological substances; Z88.6 Allergy status to analgesic agent; Z91.041 Radiographic dye allergy status; I48.0 Paroxysmal atrial fibrillation; Z79.82 Long term (current) use of aspirin
CPT/HCPCS: 36415; 71045; 80048 ×2; 80076; 81001; 82550; 82553; 83880; 84484 ×3; 85025 ×2; 87077; 87086; 87088; 87186; 93005 ×4; 93454; 99284; C1893; G0378 ×2; J2001; J2250; J2405; J2930; J3010; J7030; J0583; J7512

== ENCOUNTER 2018-04-11 00:41 | Emergency (ER) | payer OTHER ==
--- NOTE | 2018-04-11 02:10 | ER ---
Nurse's Notes [facility] Name: Serenity Omer Age: 83 yrs Sex: Female : 1935 Arrival Date: 04/11/2018 Time: 00:41 Bed 30 Private MD: Diagnosis: Spontaneous ecchymoses Presentation: 04/11 00:42 Presenting complaint: EMS states: Patient complains of dizziness and increased bruising kr2 to right lower abdomen and groin after angiogram on Saturday. Transition of care: patient was not received from another setting of care. Onset of symptoms was April 11, 2018. Risk Assessment: Do you want to hurt yourself or someone else? Patient reports no desire to harm self or others. Initial Sepsis Screen: Does the patient meet any 2 criteria? No. Patient's initial sepsis screen is negative. Does the patient have a suspected source of infection? No. Patient's initial sepsis screen is negative. Care prior to arrival: None. 00:42 Method Of Arrival: EMS: [facility] kr2 00:42 Acuity: JOSE 3 kr2 Triage Assessment: 00:49 General: Appears in no apparent distress. comfortable, well groomed, well developed, kr2 well nourished, Behavior is calm, cooperative, appropriate for age. Pain: Denies pain. Historical: - Allergies: 00:48 Iodine; kr2 00:48 all dyes and preservatives; kr2 - Home Meds: 00:48 aspirin 81 mg Oral chew 1 tab once daily [Active]; omeprazole [Active]; kr2 - PMHx: 00:48 Hypertension; Atrial Fib; gastric ulcer; kr2 - PSHx: 00:48 Angiogram; kr2 - Immunization history:: Adult Immunizations unknown. - Social history:: Smoking status: Patient/guardian denies using tobacco. - Ebola Screening: : Patient negative for fever greater than or equal to 101.5 degrees Fahrenheit, and additional compatible Ebola Virus Disease symptoms Patient denies exposure to infectious person Patient denies travel to an Ebola-affected area in the 21 days before illness onset No symptoms or risks identified at this time. Screenin:46 Abuse screen: Denies threats or abuse. Denies injuries from another. Nutritional rv screening: No deficits noted. Tuberculosis screening: No symptoms or risk factors identified. Fall Risk None identified. Vital Signs: 00:45 BP 192 / 81 Supine; Pulse 69; rv 00:45 BP 204 / 79 Sitting; Pulse 69; rv 00:45 BP 162 / 86 Standing; Pulse 76; rv 00:48 Weight 63.5 kg; Height 5 ft. 8 in. (172.72 cm); Pain 0/10; kr2 00:48 Body Mass Index 21.29 (63.50 kg, 172.72 cm) kr2 ED Course: 00:41 Patient arrived in ED. kr2 00:44 Triage completed. kr2 00:47 Patient has correct armband on for positive identification. Bed in low position. Call rv light in reach. Side rails up X 1. Pulse ox on. NIBP on. 00:49 Arm band placed on. kr2 00:52 Joe Nesbitt PA is PHCP. jr8 00:52 Charles Goodrich MD is Attending Physician. jr8 02:23 No provider procedures requiring assistance completed. Patient did not have IV access rv during this emergency room visit. Administered Medications: No medications were administered Outcome: 02:09 Discharge ordered by . jr8 02:22 Discharged to home ambulatory. rv 02:22 Condition: good 02:22 Discharge instructions given to patient, Instructed on discharge instructions, follow up and referral plans. 02:23 Patient left the ED. rv Signatures: Joe Nesbitt PA PA jr8 Ximena Falcon, VJ RN kr2 Brady Foss RN RN rv
--- NOTE | 2018-04-11 02:10 | EDPHYS ---
Physician Documentation [facility] Name: Serenity Omer Age: 83 yrs Sex: Female : 1935 Arrival Date: 04/11/2018 Time: 00:41 Bed 30 Private MD: ED Physician Charles Goodrich HPI: 04/11 02:04 This 83 yrs old Female presents to ER via EMS with complaints of Increased jr8 bruising after Angiogram. 02:04 Patient had angiogram exactly one week ago. Had been doing well since then. This jr8 morning noticed bruising to right groin and lower abdomen. Denies pain. Stated that after noticing that became worried. [place] light headed as well. Severity of symptoms: At their worst the symptoms were mild in the emergency department the symptoms are unchanged. The patient has not experienced similar symptoms in the past. The patient has not recently seen a physician. Historical: - Allergies: 00:48 Iodine; kr2 00:48 all dyes and preservatives; kr2 - Home Meds: 00:48 aspirin 81 mg Oral chew 1 tab once daily [Active]; omeprazole [Active]; kr2 - PMHx: 00:48 Hypertension; Atrial Fib; gastric ulcer; kr2 - PSHx: 00:48 Angiogram; kr2 - Immunization history:: Adult Immunizations unknown. - Social history:: Smoking status: Patient/guardian denies using tobacco. - Ebola Screening: : Patient negative for fever greater than or equal to 101.5 degrees Fahrenheit, and additional compatible Ebola Virus Disease symptoms Patient denies exposure to infectious person Patient denies travel to an Ebola-affected area in the 21 days before illness onset No symptoms or risks identified at this time. ROS: 02:04 Eyes: Negative for injury, pain, redness, and discharge, ENT: Negative for injury, jr8 pain, and discharge, Neck: Negative for injury, pain, and swelling, Cardiovascular: Negative for chest pain, palpitations, and edema, Respiratory: Negative for shortness of breath, cough, wheezing, and pleuritic chest pain, Abdomen/GI: Negative for abdominal pain, nausea, vomiting, diarrhea, and constipation, Back: Negative for injury and pain, MS/Extremity: Negative for injury and deformity, Neuro: Negative for headache, weakness, numbness, tingling, and seizure. 02:04 Skin: Positive for ecchymosis, of the pelvis. Exam: 02:04 Eyes: Pupils equal round and reactive to light, extra-ocular motions intact. Lids and jr8 lashes normal. Conjunctiva and sclera are non-icteric and not injected. Cornea within normal limits. Periorbital areas with no swelling, redness, or edema. ENT: Nares patent. No nasal discharge, no septal abnormalities noted. Tympanic membranes are normal and external auditory canals are clear. Oropharynx with no redness, swelling, or masses, exudates, or evidence of obstruction, uvula midline. Mucous membranes moist. Neck: Trachea midline, no thyromegaly or masses palpated, and no cervical lymphadenopathy. Supple, full range of motion without nuchal rigidity, or vertebral point tenderness. No Meningismus. Cardiovascular: Regular rate and rhythm with a normal S1 and S2. No gallops, murmurs, or rubs. Normal PMI, no JVD. No pulse deficits. Respiratory: Lungs have equal breath sounds bilaterally, clear to auscultation and percussion. No rales, rhonchi or wheezes noted. No increased work of breathing, no retractions or nasal flaring. Abdomen/GI: Soft, non-tender, with normal bowel sounds. No distension or tympany. No guarding or rebound. No evidence of tenderness throughout. Back: No spinal tenderness. No costovertebral tenderness. Full range of motion. MS/ Extremity: Pulses equal, no cyanosis. Neurovascular intact. Full, normal range of motion. Negative for thigh descrepency. No hematoma to inguinal region Neuro: Awake and alert, GCS 15, oriented to person, place, time, and situation. Cranial nerves II-XII grossly intact. Motor strength 5/5 in all extremities. Sensory grossly intact. Cerebellar exam normal. Normal gait. 02:04 Skin: ecchymosis noted in different healing stages to right anterior thigh near inguinal region and lower abdomen near pant line. Vital Signs: 00:45 BP 192 / 81 Supine; Pulse 69; rv 00:45 BP 204 / 79 Sitting; Pulse 69; rv 00:45 BP 162 / 86 Standing; Pulse 76; rv 00:48 Weight 63.5 kg; Height 5 ft. 8 in. (172.72 cm); Pain 0/10; kr2 00:48 Body Mass Index 21.29 (63.50 kg, 172.72 cm) kr2 MDM: 00:58 Patient medically screened. jr8 02:04 Data reviewed: vital signs, nurses notes, and as a result, I will discharge patient. jr8 Data interpreted: Pulse oximetry: on room air is 100 %. Interpretation: normal. Counseling: I had a detailed discussion with the patient and/or guardian regarding: the historical points, exam findings, and any diagnostic results supporting the discharge/admit diagnosis, the need for outpatient follow up, a manager roofing, to return to the emergency department if symptoms worsen or persist or if there are any questions or concerns that arise at home. Administered Medications: No medications were administered Disposition: 02:50 Co-signature as Attending Physician, Charles Goodrich MD I agree with the assessment and kdr plan of care. Disposition: 04/11/18 02:09 Discharged to Home. Impression: Spontaneous ecchymoses. - Condition is Stable. - Discharge Instructions: Angiogram, Care After. - Medication Reconciliation Form, Thank You Letter, Antibiotic Education, Prescription Opioid Use form. - Follow up: Private Physician; When: 2 - 3 days; Reason: Recheck today's complaints, Continuance of care, Re-evaluation by your physician. - Problem is new. - Symptoms have improved. Signatures: Charles Goodrich MD MD kdr Roszak, Josh, PA PA jr8 Ximena Falcon RN RN kr2 Brady Foss RN RN rv Corrections: (The following items were deleted from the chart) 02:23 02:09 04/11/2018 02:09 Discharged to Home. Impression: Spontaneous ecchymoses. rv Condition is Stable. Forms are Medication Reconciliation Form, Thank You Letter, Antibiotic Education, Prescription Opioid Use. Follow up: Private Physician; When: 2 - 3 days; Reason: Recheck today's complaints, Continuance of care, Re-evaluation by your physician. Problem is new. Symptoms have improved. jr8
[2018-04-11 02:41] VITALS: BP 162/86
--- NOTE | 2018-04-12 12:15 | EKG ---
Test Date: 2018-04-11 Test Time: 00:53:08 Distribution Lead: MEASUREMENT RESULTS: Intervals: Rate: 62 [place]: 244 QRSD: 92 QT: 406 QTc: 412 [place]: P: 44 [place]: 244 QRS: 15 T: 31 INTERPRETIVE STATEMENTS: Sinus rhythm with 1st degree AV block Septal infarct, age undetermined Abnormal ECG Compared to ECG 04/06/2018 08:33:11 Myocardial infarct finding now present Sinus bradycardia no longer present Electronically Signed On 04-12-18 12:08:20 CDT by Irvin Stallings
== END 2018-04-11 02:23 | disposition home or self-care (01) ==
LOC: ER 00:41
DX: R23.3 Spontaneous ecchymoses (principal); I10 Essential (primary) hypertension; I48.91 Unspecified atrial fibrillation; Z79.82 Long term (current) use of aspirin; Z91.048 Other nonmedicinal substance allergy status; Z98.890 Other specified postprocedural states
CPT/HCPCS: 93005; 99283

== ENCOUNTER 2018-09-13 17:54 | Emergency (ER) | payer OTHER ==
[2018-09-13] MEDS ORDERED: HYDROCODONE/APAP 5/325 MG TAB ONE (18:28)
--- NOTE | 2018-09-13 19:25 | ER ---
Nurse's Notes [facility] Name: Serenity Omer Age: 83 yrs Sex: Female : 1935 Arrival Date: 09/13/2018 Time: 17:56 Bed 24 Private MD: Diagnosis: Sciatica, right side Presentation: 09/13 17:56 Presenting complaint: Patient states: i think its my sciatica again, my L leg started hj hurting and i have hx od scoliosis; denies truma to the area;. Transition of care: patient was not received from another setting of care. Onset of symptoms was September 13, 2018. Risk Assessment: Do you want to hurt yourself or someone else? Patient reports no desire to harm self or others. Initial Sepsis Screen: Does the patient meet any 2 criteria? No. Patient's initial sepsis screen is negative. Does the patient have a suspected source of infection? No. Patient's initial sepsis screen is negative. Care prior to arrival: None. 17:56 Method Of Arrival: Ambulatory 17:56 Acuity: JOSE 4 hj Triage Assessment: 17:57 General: Appears in no apparent distress. uncomfortable, Behavior is calm, cooperative, hj appropriate for age. Pain: Complains of pain in right leg. Historical: - Allergies: 17:57 all dyes and preservatives; 17:57 Iodine; - Home Meds: 17:57 aspirin 81 mg Oral chew 1 tab once daily [Active]; omeprazole [Active]; hj - PMHx: 17:57 Atrial Fib; gastric ulcer; Hypertension; - PSHx: 17:57 Angiogram; - Immunization history:: Adult Immunizations up to date. - Social history:: Smoking status: Patient/guardian denies using tobacco, Patient/guardian denies using alcohol. - Ebola Screening: : Patient negative for fever greater than or equal to 101.5 degrees Fahrenheit, and additional compatible Ebola Virus Disease symptoms Patient denies exposure to infectious person Patient denies travel to an Ebola-affected area in the 21 days before illness onset. Screenin:57 Abuse screen: Denies threats or abuse. Denies injuries from another. Nutritional hj screening: No deficits noted. Tuberculosis screening: No symptoms or risk factors identified. Fall Risk None identified. Assessment: 18:21 General: Appears uncomfortable, slender, well groomed, well developed, well nourished, tl3 Behavior is calm, cooperative, appropriate for age. Pain: Complains of pain in right leg Pain at worst was 10 out of 10 on a pain scale. Neuro: Level of Consciousness is awake, alert, obeys commands, Oriented to person, place, time, situation, Appropriate for age. Cardiovascular: Patient's skin is warm and dry. Respiratory: Airway is patent Respiratory effort is even, unlabored, Respiratory pattern is regular, symmetrical. GI: No signs and/or symptoms were reported involving the gastrointestinal system. : No signs and/or symptoms were reported regarding the genitourinary system. EENT: No signs and/or symptoms were reported regarding the EENT system. Derm: No signs and/or symptoms reported regarding the dermatologic system. Musculoskeletal: Reports pain in right leg since yesterday, pt with history of sciatica and this is worse than usual. 19:39 Reassessment: Patient appears in no apparent distress at this time. Patient and/or tl3 family updated on plan of care and expected duration. Pain level reassessed. Patient is alert, oriented x 3, equal unlabored respirations, skin warm/dry/pink. pt up for discharge, feels much better. Vital Signs: 17:58 BP 141 / 64; Pulse 68; Resp 18; Temp 97.9(O); Pulse Ox 100% on R/A; Weight 63.05 kg; hj Height 5 ft. 7 in. (170.18 cm); Pain 10/10; 19:39 BP 139 / 82; Pulse 72; Resp 18; Pulse Ox 100% on R/A; tl3 17:58 Body Mass Index 21.77 (63.05 kg, 170.18 cm) ED Course: 17:56 Patient arrived in ED. hj 17:57 Triage completed. hj 17:58 Arm band placed on right wrist. hj 17:58 Patient has correct armband on for positive identification. Placed in gown. Bed in low hj position. Call light in reach. Side rails up X 1. Adult w/ patient. 18:08 Antwon Giang PA is PHCP. [facility] 18:08 Hugo Paul MD is Attending Physician. [facility] 18:11 Lucy Paris, VJ is Primary Nurse. tl3 18:21 No provider procedures requiring assistance completed. Patient did not have IV access tl3 during this emergency room visit. Administered Medications: 18:45 Drug: Endeavor 5 mg-325 mg 1 tabs Route: PO; tl3 19:41 Follow up: Response: Marked relief of symptoms tl3 Outcome: 19:25 Discharge ordered by MD. garcia 19:39 Discharged to home ambulatory. tl3 19:39 Condition: stable 19:39 Discharge instructions given to patient, family, Instructed on discharge instructions, follow up and referral plans. medication usage, Demonstrated understanding of instructions, follow-up care, medications, Prescriptions given X 1. 19:43 Patient left the ED. tl3 Signatures: Antwon Giang PA PA jmm Joaquin, Henry RN RN Lucy Walsh RN RN tl3 Corrections: (The following items were deleted from the chart) 18:00 17:56 Presenting complaint: Patient states: i think its my sciatica again, my L leg hj started hurting and i have hx od scoliosis; hj
--- NOTE | 2018-09-13 19:25 | EDPHYS ---
Physician Documentation [facility] Name: Serenity Omer Age: 83 yrs Sex: Female : 1935 Arrival Date: 09/13/2018 Time: 17:56 Bed 24 Private MD: ED Physician Hugo Paul HPI: 09/13 18:22 This 83 yrs old Female presents to ER via Ambulatory with complaints of Leg jmm Pain. 18:22 The patient presents with pain, that is chronic. Onset: The symptoms/episode jmm began/occurred gradually, 1 day(s) ago. Modifying factors: The symptoms are alleviated by nothing. the symptoms are aggravated by nothing. This is an 83 year old female with a history of htn, atrial fibrillation, presents to the ED with complaints of right leg pain she attributes to her sciatica. patient states it is similar in character to previous episodes of sciatica. Pain was not relieved at home with tylenol Patient denies fever, denies incontience, denies weakness, denies numbness. . Historical: - Allergies: 17:57 all dyes and preservatives; 17:57 Iodine; - Home Meds: 17:57 aspirin 81 mg Oral chew 1 tab once daily [Active]; omeprazole [Active]; hj - PMHx: 17:57 Atrial Fib; gastric ulcer; Hypertension; hj - PSHx: 17:57 Angiogram; hj - Immunization history:: Adult Immunizations up to date. - Social history:: Smoking status: Patient/guardian denies using tobacco, Patient/guardian denies using alcohol. - Ebola Screening: : Patient negative for fever greater than or equal to 101.5 degrees Fahrenheit, and additional compatible Ebola Virus Disease symptoms Patient denies exposure to infectious person Patient denies travel to an Ebola-affected area in the 21 days before illness onset. ROS: 18:22 Constitutional: Negative for fever, chills, and weight loss, Cardiovascular: Negative jmm for chest pain, palpitations, and edema, Respiratory: Negative for shortness of breath, cough, wheezing, and pleuritic chest pain, Abdomen/GI: Negative for abdominal pain, nausea, vomiting, diarrhea, and constipation. 18:22 Back: Positive for pain at rest, pain with movement. 18:22 MS/extremity: Positive for pain. 18:22 All other systems are negative. Exam: 18:22 Constitutional: This is a well developed, well nourished patient who is awake, alert, jmm and in no acute distress. Head/Face: atraumatic. Eyes: EOMI, no conjunctival erythema appreciated ENT: Moist Mucus Membranes Neck: Trachea midline, Supple Chest/axilla: Normal chest wall appearance and motion. Cardiovascular: Regular rate and rhythm. No edema appreciated Respiratory: Normal respirations, no respiratory distress appreciated 18:22 Back: pain, that is moderate, of the right low back, muscle spasm, is appreciated in the right low back. 18:22 Musculoskeletal/extremity: ROM: intact in all extremities. 18:22 Skin: Appearance: Color: normal in color. 18:22 Neuro: Orientation: is normal, Mentation: is normal, Memory: is normal. 18:22 Psych: Behavior/mood is pleasant, cooperative. Vital Signs: 17:58 BP 141 / 64; Pulse 68; Resp 18; Temp 97.9(O); Pulse Ox 100% on R/A; Weight 63.05 kg; hj Height 5 ft. 7 in. (170.18 cm); Pain 10/10; 19:39 BP 139 / 82; Pulse 72; Resp 18; Pulse Ox 100% on R/A; tl3 17:58 Body Mass Index 21.77 (63.05 kg, 170.18 cm) MDM: 18:22 Patient medically screened. [facility] 19:23 Data reviewed: vital signs, nurses notes. Counseling: I had a detailed discussion with [facility] the patient and/or guardian regarding: the historical points, exam findings, and any diagnostic results supporting the discharge/admit diagnosis, the need for outpatient follow up, to return to the emergency department if symptoms worsen or persist or if there are any questions or concerns that arise at home. 19:23 ED course: I do not suspect spinal abscess or cord compression. patient states her pain [facility] is relieved in the ED. patient advised to follow up with her primary care provider for reevaluation. patient understood and agrees with the plan of care. . Administered Medications: 18:45 Drug: Eldon 5 mg-325 mg 1 tabs Route: PO; tl3 19:41 Follow up: Response: Marked relief of symptoms tl3 Disposition: 09/14 17:46 Co-signature as Attending Physician, Hugo Paul MD. Disposition: 09/13/18 19:25 Discharged to Home. Impression: Sciatica, right side. - Condition is Stable. - Discharge Instructions: Sciatica. - Prescriptions for Cyclobenzaprine 5 mg Oral Tablet - take 1 tablet by ORAL route 3 times per day As needed; 15 tablet. - Medication Reconciliation Form, Thank You Letter, Antibiotic Education, Prescription Opioid Use form. - Follow up: Private Physician; When: 1 - 2 days; Reason: Recheck today's complaints, Continuance of care, Re-evaluation by your physician. Signatures: Antwon Giang PA PA jmm Joaquin, Henry, RN RN hj Hugo Paul MD MD Lucy Paris RN RN tl3 Corrections: (The following items were deleted from the chart) 09/13 19:43 19:25 09/13/2018 19:25 Discharged to Home. Impression: Sciatica, right side. Condition tl3 is Stable. Forms are Medication Reconciliation Form, Thank You Letter, Antibiotic Education, Prescription Opioid Use. Follow up: Private Physician; When: 1 - 2 days; Reason: Recheck today's complaints, Continuance of care, Re-evaluation by your physician. radha
[2018-09-13 20:09] VITALS: TEMP 97.9; O2SAT 100
[2018-09-13 20:10] VITALS: BP 139/82
== END 2018-09-13 19:43 | disposition home or self-care (01) ==
LOC: ER 17:54
DX: M54.31 Sciatica, right side (principal); I10 Essential (primary) hypertension; I48.91 Unspecified atrial fibrillation; Z79.82 Long term (current) use of aspirin; Z88.8 Allergy status to other drugs, medicaments and biological substances; Z91.02 Food additives allergy status
CPT/HCPCS: 99283

== ENCOUNTER 2018-12-21 16:11 | Emergency (ER) | payer OTHER ==
[2018-12-21 17:55] LABS: Absolute Lymphocytes (CBC) 1.2 K/uL (0.7-4.9); Absolute Monocytes 0.6 K/uL (0.1-1.3); Absolute Neutrophil 2.6 K/uL (1.8-8.0); Basophils % 0.6 % (0-1.3); Eosinophils % 2.2 % (0-4.4); Hematocrit 36.8 % (36.0-45.0); Lymphocytes % 26.1 % (15.3-44.8); MPV 8.3 fL (7.6-11.3); RBC Red Blood Cell Count 3.79 M/uL (3.86-4.86)
[2018-12-21 17:56] LABS: Protime INR 0.97
--- NOTE | 2018-12-21 18:11 | RAD REPORT ---
EXAM DESCRIPTION: RAD - Chest Single View - 12/21/2018 6:02 pm CLINICAL HISTORY: Chest pain, shortness of breath COMPARISON: March 2018 TECHNIQUE: AP portable chest image was obtained 1754 hours . FINDINGS: Fibrotic lung pattern is stable. No failure, infiltrate or mass. Heart and vasculature are normal. No measurable pleural effusion and no pneumothorax. No acute bone finding. Patient has a pro nounced thoracolumbar scoliosis. No acute aortic findings suspected. IMPRESSION: No acute cardiopulmonary process. No significant interval change.
--- NOTE | 2018-12-21 18:13 | RAD REPORT ---
EXAM DESCRIPTION: CT - Head Brain Wo Cont - 12/21/2018 6:05 pm CLINICAL HISTORY: Left arm pain and weakness, CVA, stroke-like symptoms COMPARISON: March 2017 TECHNIQUE: Axial 5 mm thick images of the head were obtained without IV contrast. All CT scans are performed using dose optimization technique as appropriate and may include automated exposure control or mA/KV adjustment according to patient size. FINDINGS: No intracranial hemorrhage, mass, edema or shift of mid-line structures. No acute infarcti on changes seen. Moderate severity atrophy and chronic ischemic changes are present. Pattern is simil ar to comparison. Ventricles are in proportion to volume loss. Mastoid air cells and visualized portions of the paranasal sinuses are clear. No acute bony findings. IMPRESSION: Negative non-contrast CT head examination for acute finding Atrophy and chronic ischemic change similar to 2017.
[2018-12-21 18:20] LABS: ALT/SGPT 119 U/L (12-78); AST/SGOT 90 U/L (15-37); Albumin 3.7 g/dL (3.4-5.0); Alkaline Phosphatase 103 U/L (45-117); BUN Blood Urea Nitrogen 19 mg/dL (7-18); Bicarbonate 24 mmol/L (21-32); Bilirubin Direct 0.2 mg/dL (0-0.2); Bilirubin Total 0.6 mg/dL (0.2-1.0); Glucose Level 102 mg/dL (74-106); NT PRO-BNP 292 pg/mL (<450); Potassium 4.3 mmol/L (3.5-5.1); Protein, Total 7.6 g/dL (6.4-8.2); Sodium Level 134 mmol/L (136-145); Troponin (Emerg Dept Use Only) < 0.02 ng/mL (0.0-0.045)
[2018-12-21] MEDS ORDERED: ASPIRIN 81 MG CHEWABLE TABLET ONE (19:07)
[2018-12-21] MEDS ORDERED: ENALAPRILAT 1.25 MG/ML VIAL IV ONE (20:13)
--- NOTE | 2018-12-21 21:41 | ER ---
Nurse's Notes [facility] Name: Serenity Omer Age: 83 yrs Sex: Female : 1935 Arrival Date: 12/21/2018 Time: 16:12 Bed 13 Private MD: Aidan Rodriguez R Diagnosis: Chest pain, unspecified;Pain in left upper arm;Atypical facial pain;Essential (primary) hypertension Presentation: 12/21 16:25 Presenting complaint: Patient states: Last night I think I had a light stroke and today la1 I think I had another one. I think I also had one yesterday. I have pain all over my left side and am a little nauseous. Pain started in late afternoon or evening yesterday. Transition of care: patient was not received from another setting of care. Onset of symptoms was December 21, 2018. Risk Assessment: Do you want to hurt yourself or someone else? Patient reports no desire to harm self or others. Initial Sepsis Screen: Does the patient meet any 2 criteria? No. Patient's initial sepsis screen is negative. Does the patient have a suspected source of infection? No. Patient's initial sepsis screen is negative. Care prior to arrival: None. 16:25 Method Of Arrival: Ambulatory la1 16:25 Acuity: JOSE 3 la1 Historical: - Allergies: 16:24 Iodine; la1 16:24 all dyes and preservatives; la1 - PMHx: 16:24 Atrial Fib; gastric ulcer; Hypertension; la1 - Immunization history:: Adult Immunizations up to date. - Social history:: Smoking status: Patient/guardian denies using tobacco. - Ebola Screening: : No symptoms or risks identified at this time. Screenin:28 VAN Screening: Arm Drift: Patient shows no arm weakness. Patient is VAN negative. la1 19:00 Abuse screen: Denies threats or abuse. Denies injuries from another. Nutritional rr5 screening: No deficits noted. Tuberculosis screening: No symptoms or risk factors identified. Fall Risk IV access (20 points). Total George Fall Scale indicates No Risk (0-24 pts). Assessment: 16:28 Neuro: Level of Consciousness is awake, alert, obeys commands, Oriented to person, la1 place, time, situation, [employer] are equal bilaterally Moves all extremities. Full function Gait is steady, Speech is normal, Facial symmetry appears normal, Pupils are PERRLA. 19:00 General: Appears in no apparent distress. comfortable, Behavior is calm, cooperative, rr5 appropriate for age. Pain: Complains of pain in left face,left arm and left shoulder Pain does not radiate. Pain currently is 7 out of 10 on a pain scale. Quality of pain is described as aching, Pain began gradually, Is intermittent. 19:00 Reassessment: for repeat troponin at 2044. Neuro: Level of Consciousness is awake, rr5 alert, obeys commands, Oriented to person, place, time, situation, [employer] are equal bilaterally. Cardiovascular: Capillary refill < 3 seconds Patient's skin is warm and dry. Respiratory: Airway is patent Respiratory effort is even, unlabored, Respiratory pattern is regular, symmetrical. GI: Abdomen is round. : No signs and/or symptoms were reported regarding the genitourinary system. EENT: No signs and/or symptoms were reported regarding the EENT system. Derm: Skin is intact, Skin temperature is warm. Musculoskeletal: Circulation, motion, and sensation intact. Capillary refill < 3 seconds, Reports pain in left arm and left shoulder. 19:45 Reassessment: ED provider aware for BP 187/74 mmHg with order made and carried out. rr5 20:45 Reassessment: Patient appears in no apparent distress at this time. Patient and/or rr5 family updated on plan of care and expected duration. Pain level reassessed. repeat troponin extracted. 21:15 Reassessment: Patient appears in no apparent distress at this time. Patient is alert, rr5 oriented x 3, equal unlabored respirations, skin warm/dry/pink. chatting with her coat cutter, no complaints made. Patient states symptoms have improved. 21:50 Reassessment: Patient appears in no apparent distress at this time. Patient is alert, rr5 oriented x 3, equal unlabored respirations, skin warm/dry/pink. discharge instruction given and explained without complaints made. Patient states feeling better. Patient states symptoms have improved. Vital Signs: 16:27 Pulse 67; Resp 16; Temp 97.6; Pulse Ox 98% on R/A; Weight 63.5 kg; Height 5 ft. 7 in. la1 (170.18 cm); 16:28 BP 160 / 93; la1 19:00 BP 181 / 101; Pulse 63; Resp 17; Temp 97.9; Pulse Ox 99% on R/A; Pain 7/10; rr5 20:00 BP 229 / 93; Pulse 59; Resp 17; Pulse Ox 99% on R/A; rr5 20:30 BP 175 / 97; Pulse 63; Resp 17; Temp 98; Pulse Ox 99% ; rr5 21:00 BP 163 / 91; Pulse 60; Resp 16; Pulse Ox 98% on R/A; rr5 21:50 BP 158 / 89; Pulse 62; Resp 16; Temp 98.4; Pulse Ox 99% on R/A; rr5 16:27 Body Mass Index 21.93 (63.50 kg, 170.18 cm) la1 20:00 Enalaprilat IV given rr5 NIH Stroke Scale Scores: 21:28 NIHSS Score: 0 gs ED Course: 16:12 Patient arrived in ED. rg4 16:13 Aidan Rodriguez MD is Private Physician. rg4 16:26 Triage completed. la1 16:26 Arm band placed on right wrist. la1 17:03 Charles Goodrich MD is Attending Physician. kdr 17:26 Yousif Pisano RN is Primary Nurse. sg 17:45 Initial lab(s) drawn, by me, sent to lab. Inserted saline lock: 22 gauge in right dh3 antecubital area, using aseptic technique. Blood collected. 18:04 XRAY Chest (1 view) In Process Unspecified. EDMS 18:04 CT completed. Patient tolerated procedure well. Patient moved back from CT. bq 18:06 CT Head Brain wo Cont In Process Unspecified. EDMS 18:23 EKG done, by ED staff, reviewed by Charles Goodrich MD. dh3 19:00 Patient has correct armband on for positive identification. Placed in gown. Bed in low rr5 position. Call light in reach. Side rails up X2. patient monitor on. Pulse ox on. NIBP on. 19:12 Attending Physician role handed off by Charles Goodrich MD gs 19:12 Hugo Paul MD is Attending Physician. gs 20:45 Repeat lab(s) drawn. by me, sent to lab. rr5 21:39 Aidan Rodriguez MD is Referral Physician. gs 21:51 No provider procedures requiring assistance completed. IV discontinued, intact, rr5 bleeding controlled, No redness/swelling at site. Pressure dressing applied. Administered Medications: 19:08 Drug: Aspirin Chewable Tablet 324 mg Route: PO; sg 20:10 Follow up: Response: No adverse reaction rr5 20:00 Drug: Enalaprilat 1.25 mg Route: IV; Rate: calculated rate; Site: right antecubital; rr5 21:00 Follow up: Response: No adverse reaction; IV Status: Completed infusion rr5 Outcome: 21:41 Discharge ordered by MD. gs 21:51 Discharged to home ambulatory. rr5 21:51 Condition: stable 21:51 Discharge instructions given to patient, Instructed on discharge instructions, follow up and referral plans. Demonstrated understanding of instructions, follow-up care. 21:53 Patient left the ED. rr5 NIH Stroke Scale - NIH Stroke Score Date: 12/21/2018 Time: 21:28 Total Score = 0 1a. Level of Consciousness (LOC) - 0(Alert) 1b. Level of Consciousness (LOC) (Year \T\ Age) - 0(Both) 1c. LOC Commands (Open \T\ Closes Eyes/Infant Caregiver) - 0(Both) 2. Best Gaze (Lateral Gaze Paresis) - 0(Normal) 3. Visual Field Loss - 0(No visual loss) 4. Facial Palsy - 0(Normal) 5a. Left Arm: Motor (10-second hold) - 0(No drift) 5b. Right Arm: Motor (10-second hold) - 0(No drift) 6a. Left Leg: Motor (5-second hold - always test supine) - 0(No drift) 6b. Right Leg: Motor (5-second hold - always test supine) - 0(No drift) 7. Limb Ataxia (finger/nose \T\ heel/bravo - test with eyes open) - 0(Absent) 8. Sensory Loss (pinprick arms/legs/face) - 0(Normal) 9. Best Language: Aphasia (description/naming/reading) - 0(No aphasia) 10. Dysarthria (speech clarity - read or repeat words) - 0(Normal) 11. Extinction and Inattention (visual/tactile/auditory/spatial/personal) - 0(No abnormality) Initials: Signatures: Dispatcher [employer] EDMS Yousif Pisano RN RN sg Charles Goodrich MD MD kdr Quilty, Betty bq Attema, Lee, RN RN la1 Liz Hayes 4 [facility] Hugo Paul MD MD gs Roque, Raymond, RN RN rr5 Corrections: (The following items were deleted from the chart) 16:29 16:25 Presenting complaint: Patient states: Last night I think I had a light la1 stroke and today I think I had another one. I think I also had one yesterday. I have pain all over my left side and am a little nauseous. la1
--- NOTE | 2018-12-21 21:42 | EDPHYS ---
Physician Documentation [facility] Name: Serenity Omer Age: 83 yrs Sex: Female : 1935 Arrival Date: 12/21/2018 Time: 16:12 Bed 13 Private MD: Aidan Rodriguez R ED Physician Hugo Paul HPI: 12/21 18:41 This 83 yrs old Female presents to ER via Ambulatory with complaints of Arm kdr Pain, Shoulder Pain, Left Side Facial Pain. 18:42 The patient thinks she may be having a stroke since she has pain the the left upper kdr extremity since yesterday. It has been intermittent but persistent and worse this afternoon. She has not had these signs/symptoms before. The pain radiates to her left face and jaw and she has slight nausea and SOB. Denies Diaphoresis. She states that this afternoon, her left breast was hurting as well.. Historical: - Allergies: 16:24 Iodine; la1 16:24 all dyes and preservatives; la1 - PMHx: 16:24 Atrial Fib; gastric ulcer; Hypertension; la1 - Immunization history:: Adult Immunizations up to date. - Social history:: Smoking status: Patient/guardian denies using tobacco. - Ebola Screening: : No symptoms or risks identified at this time. ROS: 18:45 Constitutional: Negative for fever, chills, and weight loss, Eyes: Negative for injury, kdr pain, redness, and discharge, Neck: Negative for injury, pain, and swelling, Respiratory: Negative for shortness of breath, cough, wheezing, and pleuritic chest pain, Abdomen/GI: Negative for abdominal pain, nausea, vomiting, diarrhea, and constipation, Back: Negative for injury and pain, : Negative for injury, bleeding, discharge, and swelling, MS/Extremity: Negative for injury and deformity, Skin: Negative for injury, rash, and discoloration, Neuro: Negative for headache, weakness, numbness, tingling, and seizure activity. Psych: Negative for depression, anxiety, suicide ideation, homicidal ideation, and hallucinations, Allergy/Immunology: Negative for hives, rash, and allergies, Endocrine: Negative for neck swelling, polydipsia, polyuria, polyphagia, and marked weight changes, Hematologic/Lymphatic: Negative for swollen nodes, abnormal bleeding, and unusual bruising. 18:45 Cardiovascular: Positive for chest pain, Left arm pain. Exam: 18:45 Constitutional: This is a well developed, well nourished patient who is awake, alert, kdr and in no acute distress. Head/Face: Normocephalic, atraumatic. Eyes: Pupils equal round and reactive to light, extra-ocular motions intact. Lids and lashes normal. Conjunctiva and sclera are non-icteric and not injected. Cornea within normal limits. Periorbital areas with no swelling, redness, or edema. Neck: Trachea midline, no thyromegaly or masses palpated, and no cervical lymphadenopathy. Supple, full range of motion without nuchal rigidity, or vertebral point tenderness. No Meningismus. Chest/axilla: Normal chest wall appearance and motion. Nontender with no deformity. No lesions are appreciated. Cardiovascular: Regular rate and rhythm with a normal S1 and S2. No gallops, murmurs, or rubs. Normal PMI, no JVD. No pulse deficits. Respiratory: Lungs have equal breath sounds bilaterally, clear to auscultation and percussion. No rales, rhonchi or wheezes noted. No increased work of breathing, no retractions or nasal flaring. Abdomen/GI: Soft, non-tender, with normal bowel sounds. No distension or tympany. No guarding or rebound. No evidence of tenderness throughout. Back: No spinal tenderness. No costovertebral tenderness. Full range of motion. Skin: Warm, dry with normal turgor. Normal color with no rashes, no lesions, and no evidence of cellulitis. MS/ Extremity: Pulses equal, no cyanosis. Neurovascular intact. Full, normal range of motion. Neuro: Awake and alert, GCS 15, oriented to person, place, time, and situation. Cranial nerves II-XII grossly intact. Motor strength 5/5 in all extremities. Sensory grossly intact. Cerebellar exam normal. Normal gait. Psych: Awake, alert, with orientation to person, place and time. Behavior, mood, and affect are within normal limits. 21:36 ECG was reviewed by the Attending Physician. Vital Signs: 16:27 Pulse 67; Resp 16; Temp 97.6; Pulse Ox 98% on R/A; Weight 63.5 kg; Height 5 ft. 7 in. la1 (170.18 cm); 16:28 BP 160 / 93; la1 19:00 BP 181 / 101; Pulse 63; Resp 17; Temp 97.9; Pulse Ox 99% on R/A; Pain 7/10; rr5 20:00 BP 229 / 93; Pulse 59; Resp 17; Pulse Ox 99% on R/A; rr5 20:30 BP 175 / 97; Pulse 63; Resp 17; Temp 98; Pulse Ox 99% ; rr5 21:00 BP 163 / 91; Pulse 60; Resp 16; Pulse Ox 98% on R/A; rr5 21:50 BP 158 / 89; Pulse 62; Resp 16; Temp 98.4; Pulse Ox 99% on R/A; rr5 16:27 Body Mass Index 21.93 (63.50 kg, 170.18 cm) la1 20:00 Enalaprilat IV given rr5 NIH Stroke Scale Scores: 21:28 NIHSS Score: 0 gs MDM: 18:45 Data reviewed: vital signs, nurses notes, lab test result(s), EKG, radiologic studies. kdr Counseling: I had a detailed discussion with the patient and/or guardian regarding: the historical points, exam findings, and any diagnostic results supporting the discharge/admit diagnosis, lab results, radiology results. 19:49 Patient medically screened. gs 21:36 Differential Diagnosis cad,cva,ns chest pain,paresthesia tia. Response to treatment: gs the patient's symptoms have resolved after treatment, the patient's blood pressure is in an acceptable range, the patient's pain is gone. ED course: pt states hasnt had before but after reminding seen here for simialr issue with blood pressure, treated today with enalapril workup negative will discharge followup take bp meds. 12/21 17:36 Order name: Basic Metabolic Panel; Complete Time: 18:41 kdr 12/21 17:36 Order name: CBC with Diff; Complete Time: 18:41 kdr 12/21 17:36 Order name: LFT's; Complete Time: 18:41 kdr 12/21 17:36 Order name: Magnesium; Complete Time: 18:41 kdr 12/21 17:36 Order name: NT PRO-BNP; Complete Time: 18:41 kdr 12/21 17:36 Order name: PT-INR; Complete Time: 18:41 kdr 12/21 17:36 Order name: Troponin (emerg Dept Use Only); Complete Time: 18:41 kdr 12/21 17:36 Order name: XRAY Chest (1 view); Complete Time: 18:41 kdr 12/21 17:36 Order name: EKG; Complete Time: 17:38 kdr 12/21 17:36 Order name: Cardiac monitoring; Complete Time: 18:12 kdr 12/21 17:36 Order name: CT Head Brain wo Cont; Complete Time: 18:41 [facility] 12/21 18:41 Order name: Troponin (emerg Dept Use Only): Repeat in three hours from initial draw; kdr Complete Time: 21:17 12/21 17:36 Order name: EKG - Nurse/Tech; Complete Time: 18:26 kdr 12/21 17:36 Order name: IV Saline Lock; Complete Time: 18:00 [facility] 12/21 17:36 Order name: Labs collected and sent; Complete Time: 18:00 [facility] 12/21 17:36 Order name: O2 Per Protocol; Complete Time: 18:00 [facility] 12/21 17:36 Order name: O2 Sat Monitoring; Complete Time: 18:00 kdr EC:36 Rate is 66 beats/min. Rhythm is regular. UT interval is prolonged. QRS interval is gs normal. Q waves are Old. T waves are Normal. No ST changes noted. Clinical impression: Abnormal EKG without significant change. Interpreted by me. Administered Medications: 19:08 Drug: Aspirin Chewable Tablet 324 mg Route: PO; sg 20:10 Follow up: Response: No adverse reaction rr5 20:00 Drug: Enalaprilat 1.25 mg Route: IV; Rate: calculated rate; Site: right antecubital; rr5 21:00 Follow up: Response: No adverse reaction; IV Status: Completed infusion rr5 Disposition: 12/21/18 21:41 Discharged to Home. Impression: Chest pain, unspecified, Pain in left upper arm, Atypical facial pain, Essential (primary) hypertension. - Condition is Stable. - Discharge Instructions: Nonspecific Chest Pain, Hypertension. - Medication Reconciliation Form, Thank You Letter, Antibiotic Education, Prescription Opioid Use form. - Follow up: Aidan Rodriguez MD; When: 2 - 3 days; Reason: Re-evaluation by your physician. NIH Stroke Scale - NIH Stroke Score Date: 12/21/2018 Time: 21:28 Total Score = 0 1a. Level of Consciousness (LOC) - 0(Alert) 1b. Level of Consciousness (LOC) (Year \T\ Age) - 0(Both) 1c. LOC Commands (Open \T\ Closes Eyes/Finance Admin) - 0(Both) 2. Best Gaze (Lateral Gaze Paresis) - 0(Normal) 3. Visual Field Loss - 0(No visual loss) 4. Facial Palsy - 0(Normal) 5a. Left Arm: Motor (10-second hold) - 0(No drift) 5b. Right Arm: Motor (10-second hold) - 0(No drift) 6a. Left Leg: Motor (5-second hold - always test supine) - 0(No drift) 6b. Right Leg: Motor (5-second hold - always test supine) - 0(No drift) 7. Limb Ataxia (finger/nose \T\ heel/bravo - test with eyes open) - 0(Absent) 8. Sensory Loss (pinprick arms/legs/face) - 0(Normal) 9. Best Language: Aphasia (description/naming/reading) - 0(No aphasia) 10. Dysarthria (speech clarity - read or repeat words) - 0(Normal) 11. Extinction and Inattention (visual/tactile/auditory/spatial/personal) - 0(No abnormality) Initials: Signatures: Dispatcher [employer] EDMS Yousif Pisano RN RN sg Rittger, Kevin, MD MD [facility] Roberto Carlos Maria RN RN la1 Hugo Paul MD MD gs Roque, Raymond, RN RN rr5 Corrections: (The following items were deleted from the chart) 21:41 21:41 12/21/2018 21:41 Discharged to Home. Impression: Chest pain, unspecified; gs Pain in left upper arm; Atypical facial pain. Condition is Stable. Forms are Medication Reconciliation Form, Thank You Letter, Antibiotic Education, Prescription Opioid Use. Follow up: Aidan Rodriguez; When: 2 - 3 days; Reason: Re-evaluation by your physician. 21:53 21:41 12/21/2018 21:41 Discharged to Home. Impression: Chest pain, unspecified; rr5 Pain in left upper arm; Atypical facial pain; Essential (primary) hypertension. Condition is Stable. Forms are Medication Reconciliation Form, Thank You Letter, Antibiotic Education, Prescription Opioid Use. Follow up: Aidan Rodriguez; When: 2 - 3 days; Reason: Re-evaluation by your physician. gs
[2018-12-21 22:07] VITALS: BP 158/89; TEMP 98.4; O2SAT 99
--- NOTE | 2018-12-22 07:55 | EKG ---
Test Date: 2018-12-21 Test Time: 18:21:59 Putty Glazer: VALDO MEASUREMENT RESULTS: Intervals: Rate: 66 MS: 240 QRSD: 84 QT: 434 QTc: 454 Burton: P: 55 MS: 240 QRS: 18 T: 38 INTERPRETIVE STATEMENTS: Sinus rhythm with 1st degree AV block with occasional premature ventricular complexes Septal infarct, age undetermined Abnormal ECG Compared to ECG 04/11/2018 00:53:08 Ventricular premature complex(es) now present Myocardial infarct finding still present Electronically Signed On 12-22-18 07:53:42 CDT by Irvin Stallings
== END 2018-12-21 21:53 | disposition home or self-care (01) ==
LOC: ER 16:11
DX: M79.622 Pain in left upper arm (principal); R07.9 Chest pain, unspecified; R51 Headache; I10 Essential (primary) hypertension; I48.91 Unspecified atrial fibrillation
CPT/HCPCS: 36415; 70450; 71045; 80048; 80076; 83735; 83880; 84484; 85025; 85610; 93005; 96365; 99285

== ENCOUNTER 2020-09-09 11:03 | Emergency (ER) | payer OTHER ==
[2020-09-09 11:47] LABS: Absolute Lymphocytes (CBC) 1.4 K/uL (0.7-4.9); Basophils % 0.4 % (0-1.3); Lymphocytes % 27.6 % (15.3-44.8); MPV 8.1 fL (7.6-11.3)
[2020-09-09 11:51] LABS: Protime INR 0.95
[2020-09-09] MEDS ORDERED: MORPHINE 2 MG/ML SYR ONE ×2 (11:54→14:09)
[2020-09-09] MEDS ORDERED: ONDANSETRON 4 MG/2 ML VIAL ONE (11:55)
[2020-09-09] MEDS ORDERED: TETANUS & DIPHTHERIA TOX,ADULT 0.5 ML VIAL ONE (11:55)
[2020-09-09 12:00] LABS: Albumin 3.8 g/dL (3.4-5.0); Bilirubin Direct 0.2 mg/dL (0-0.2); Bilirubin Total 0.7 mg/dL (0.2-1.0); CKMB Creatine Kinase MB 1.2 ng/mL (0.3-3.6); Magnesium 2.4 mg/dL (1.8-2.4); Potassium 3.5 mmol/L (3.5-5.1); Protein, Total 7.4 g/dL (6.4-8.2)
--- NOTE | 2020-09-09 12:12 | RAD REPORT ---
EXAM DESCRIPTION: CT - Head Brain Wo Cont - 09/09/2020 11:56 am CLINICAL HISTORY: Syncope COMPARISON: 2019 TECHNIQUE: Computed axial tomography of the head was obtained. IV contrast was not requested. All CT scans are performed using dose optimization technique as appropriate and may include automated exposure control or mA/KV adjustment according to patient size. FINDINGS: An intracranial bleed is not seen . The ventricles are normal in caliber. No extra-axial fluid collection is noted. Fluid within the sinuses/ mastoids is not seen. IMPRESSION: No acute intracranial abnormality is seen. If patient's symptoms persist MRI of the bra in would be recommended.
--- NOTE | 2020-09-09 12:23 | RAD REPORT ---
EXAM DESCRIPTION: RAD - Humerus Right - 09/09/2020 12:18 pm CLINICAL HISTORY: Right arm pain status post fall FINDINGS: No fracture is seen. Osteoporosis
--- NOTE | 2020-09-09 12:27 | RAD REPORT ---
EXAM DESCRIPTION: RAD - Forearm Right - 09/09/2020 12:16 pm CLINICAL HISTORY: Right arm pain status post fall FINDINGS: Mildly to moderately displaced fracture involves the distal diametaphysis of the radius . The lunate is tilted dorsally. This may represent Dorsal intercalated scaphoid instability. Dedicated views of the wrist may be help ful for further evaluation
--- NOTE | 2020-09-09 13:31 | ER ---
Nurse's Notes [facility] Name: Serenity Omer Age: 85 yrs Sex: Female : 1935 Arrival Date: 09/09/2020 Time: 11:05 Bed 15 Private MD: Diagnosis: Syncope and collapse;Displaced fracture of distal radius Presentation: 09/09 11:06 Chief complaint: Patient states: "I passed out a few minutes after they gave me the aa5 COVID-19 vaccine and I fell". Syncopal episode was witnessed by friend and friend states "she was out for a few minutes". Pt c/o right arm pain. Coronavirus screen: At this time, the client does not indicate any symptoms associated with coronavirus-19. Ebola Screen: Patient negative for fever greater than or equal to 101.5 degrees Fahrenheit, and additional compatible Ebola Virus Disease symptoms. Initial Sepsis Screen: Does the patient meet any 2 criteria? No. Patient's initial sepsis screen is negative. Does the patient have a suspected source of infection? No. Patient's initial sepsis screen is negative. Risk Assessment: Do you want to hurt yourself or someone else? Patient reports no desire to harm self or others. Onset of symptoms was August 2020. 11:06 Method Of Arrival: Wheelchair aa5 11:06 Acuity: JOSE 3 aa5 Historical: - Allergies: 11:07 all dyes and preservatives; aa5 11:07 Iodine; aa5 - PMHx: 11:07 Atrial Fib; gastric ulcer; Hypertension; aa5 - Immunization history:: Adult Immunizations up to date. - Social history:: Smoking status: Patient denies any tobacco usage or history of. Screenin:54 Abuse screen: Denies threats or abuse. Nutritional screening: No deficits noted. ll1 Tuberculosis screening: No symptoms or risk factors identified. Fall Risk Fall in past 12 months (25 points). IV access (20 points). Ambulatory Aid- Crutches/Cane/Walker (15 pts). Gait- Impaired (20 pts.). Total George Fall Scale indicates High Risk Score (45 or more points). Fall prevention measures have been instituted. Side Rails Up X 2 Frequent Obs/Assessments Occuring As available patient and family educated on Fall Prevention Program and Strategies. Assessment: 11:20 General: Appears uncomfortable, Behavior is calm, cooperative, appropriate for age. ll1 Pain: Complains of pain in R arm Pain currently is 10 out of 10 on a pain scale. Quality of pain is described as aching, Aggravated by increased activity. Neuro: Level of Consciousness is awake, alert, obeys commands, Oriented to person, place, time, situation, Appropriate for age Animal Care Assistant are equal bilaterally Moves all extremities. Full function Speech is normal, Facial symmetry appears normal, Reports dizziness, headache in right frontal area, a syncopal episode. Cardiovascular: Reports fatigue, lightheadedness, nausea, syncope, Heart tones S1 S2 Capillary refill < 3 seconds Clubbing of nail beds is absent JVD is absent Patient's skin is warm and dry. Pulses are all present. Rhythm is regular. Respiratory: No deficits noted. GI: Reports nausea. GI: Abdomen is flat, Bowel sounds present X 4 quads. Abd is soft and non tender X 4 quads. Abd is soft. Derm: Abrasion R FA, no active bleeding. Reports pain. Musculoskeletal: Circulation, motion, and sensation intact. Capillary refill < 3 seconds, Swelling present in R cheek Tenderness present in face and right arm Reports pain in R arm. R cheek (face). Injury Description: Abrasion Head injury Bruise. 11:55 Reassessment: No changes from previously documented assessment. Patient and/or family ll1 updated on plan of care and expected duration. Pain level reassessed. 12:29 Reassessment: Patient appears in no apparent distress at this time. Patient and/or vg1 family updated on plan of care and expected duration. Pain level reassessed. Patient is alert, oriented x 3, equal unlabored respirations, skin warm/dry/pink. Stated pain level 9/10. Notified Provider. Vital Signs: 11:08 BP 122 / 61; Pulse 54; Resp 16 S; Pulse Ox 98% on R/A; aa5 11:14 Temp 96.1(TE); aa5 12:31 BP 127 / 103; Pulse 85; Resp 18; Pulse Ox 96% on R/A; vg1 11:14 Pt reports it's normal for her to have a lower temperature. aa5 ED Course: 11:05 Patient arrived in ED. aa5 11:05 Arm band placed on. aa5 11:07 Triage completed. aa5 11:11 Kacie Kurtz FNP-C is [facility]. kb 11:11 Charles Goodrich MD is Attending Physician. kb 11:15 Inserted saline lock: 22 gauge in left forearm, using aseptic technique. Blood ll1 collected. 11:26 Karl Wadsworth, RN is Primary Nurse. ll1 11:51 EKG done, by ED staff, reviewed by Kacie MONTENEGRO. dh3 11:54 Patient has correct armband on for positive identification. Bed in low position. Call ll1 light in reach. Side rails up X 1. Pulse ox on. NIBP on. 11:56 CT Head Brain wo Cont In Process Unspecified. EDMS 12:14 Humerus Right XRAY In Process Unspecified. EDMS 12:14 Forearm Right XRAY In Process Unspecified. EDMS 12:16 Primary Nurse role handed off by Karl Wadsworth, VJ vg1 12:16 Angie Hayes RN is Primary Nurse. vg1 13:40 Dressings: non-adherent dressing x 2 right arm Tegaderm X 1; right arm Steri strips 1/2 jp3 " X 1; right arm. Kris wrap to right arm Orthoglass splint: Sugar tong splint applied on right arm. Sling applied to right arm. Wound care: to skin tear (x2) located on right arm was cleaned with Hibiclens, irrigated with normal saline, dressed with Neosporin. 14:00 No provider procedures requiring assistance completed. IV discontinued, intact, vg1 bleeding controlled, No redness/swelling at site. Pressure dressing applied. Administered Medications: 11:45 Drug: Zofran (Ondansetron) 4 mg Route: IVP; Site: left forearm; ll1 13:36 Follow up: Response: No adverse reaction vg1 11:46 Drug: morphine 2 mg Route: IVP; Site: left forearm; ll1 13:36 Follow up: Response: Pain is unchanged, physician notified vg1 11:48 Drug: Tetanus-Diphtheria Toxoid Adult 0.5 ml {Sales Team Manager: [employer]. Exp: ll1 11/12/2021. Lot #: [id number]. } Route: IM; Site: left deltoid; 13:36 Follow up: Response: No adverse reaction vg1 13:56 Drug: morphine 2 mg Route: IVP; Site: left wrist; vg1 14:05 Follow up: Response: Medication administered at discharge. vg1 Outcome: 13:31 Discharge ordered by . prachi 14:00 Discharged to home ambulatory. vg1 14:00 Condition: stable 14:00 Discharge instructions given to patient, Instructed on discharge instructions, follow up and referral plans. medication usage, Demonstrated understanding of instructions, follow-up care, medications, Prescriptions given X 1. 14:06 Patient left the ED. vg1 Signatures: Dispatcher [employer] EDMS Kacie Kurtz, CAMPAIGN CONSULTANT-C CAMPAIGN CONSULTANT-Terrie Suh, RN RN aa5 Kathy Wright 3 Nasir Townsend jp3 Angie Hayes RN RN vg1 Karl Wadsworth RN RN ll1 Corrections: (The following items were deleted from the chart) 09/10 00:19 02/ 14:00 Discharge instructions given to patient, Instructed on discharge vg1 instructions, follow up and referral plans. Demonstrated understanding of instructions, follow-up care, vg1
--- NOTE | 2020-09-09 13:31 | EDPHYS ---
Physician Documentation [facility] Name: Serenity Omer Age: 85 yrs Sex: Female : 1935 Arrival Date: 09/09/2020 Time: 11:05 Bed 15 Private MD: ED Physician Charles Goodrich HPI: 09/09 18:55 This 85 yrs old Female presents to ER via Wheelchair with complaints of kb Syncope. 18:55 The patient has experienced syncope, collapsed. Onset: The symptoms/episode kb began/occurred just prior to arrival. Duration: This was a single episode, that lasted 2 minute(s). Context: the episode(s) was witnessed, by a friend, occurred while the patient was walking, Just prior to the episode the patient experienced no apparent symptoms. Associated injury: Right upper extremity: right forearm, abrasion, decreased range of motion, pain, tenderness. Associated signs and symptoms: The patient has no apparent associated signs or symptoms. Current symptoms: Currently, the patient is not experiencing any symptoms, the patient feels back to baseline, no decreased level of consciousness, no confusion, no dysphasia, no headache, no paralysis, no visual changes. The patient has not experienced similar symptoms in the past. The patient has not recently seen a physician. Pt reports she passed out a few minutes after receiving the covid shot. Pt reports she feels fine now, just has pain to her right arm. Denies headache, confusion, vision changes, chest pain, dizziness, shortness of breath. Historical: - Allergies: 11:07 all dyes and preservatives; aa5 11:07 Iodine; aa5 - PMHx: 11:07 Atrial Fib; gastric ulcer; Hypertension; aa5 - Immunization history:: Adult Immunizations up to date. - Social history:: Smoking status: Patient denies any tobacco usage or history of. ROS: 18:53 Constitutional: Negative for fever, chills, and weight loss, Cardiovascular: Negative kb for chest pain, palpitations, and edema, Respiratory: Negative for shortness of breath, cough, wheezing, and pleuritic chest pain, Abdomen/GI: Negative for abdominal pain, nausea, vomiting, diarrhea, and constipation. 18:53 MS/extremity: Positive for injury or acute deformity, decreased range of motion, pain, tenderness, of the right arm. 18:53 Skin: Positive for abrasion(s), of the right forearm. 18:54 Neuro: Positive for syncope. kb Exam: 18:53 Constitutional: This is a well developed, well nourished patient who is awake, alert, kb and in no acute distress. Head/Face: Normocephalic, atraumatic. Chest/axilla: Normal chest wall appearance and motion. Nontender with no deformity. No lesions are appreciated. Cardiovascular: Regular rate and rhythm with a normal S1 and S2. No gallops, murmurs, or rubs. Normal PMI, no JVD. No pulse deficits. Respiratory: Lungs have equal breath sounds bilaterally, clear to auscultation and percussion. No rales, rhonchi or wheezes noted. No increased work of breathing, no retractions or nasal flaring. Abdomen/GI: Soft, non-tender, with normal bowel sounds. No distension or tympany. No guarding or rebound. No evidence of tenderness throughout. Neuro: Awake and alert, GCS 15, oriented to person, place, time, and situation. Cranial nerves II-XII grossly intact. Motor strength 5/5 in all extremities. Sensory grossly intact. Cerebellar exam normal. Normal gait. 18:53 Musculoskeletal/extremity: Extremities: grossly normal except: noted in the right forearm: decreased ROM, pain, swelling, tenderness, ROM: limited active range of motion due to pain, in the right forearm, Circulation is intact in all extremities. Sensation intact. 18:53 Skin: 2 skin tears to right forearm. Vital Signs: 11:08 BP 122 / 61; Pulse 54; Resp 16 S; Pulse Ox 98% on R/A; aa5 11:14 Temp 96.1(TE); aa5 12:31 BP 127 / 103; Pulse 85; Resp 18; Pulse Ox 96% on R/A; vg1 11:14 Pt reports it's normal for her to have a lower temperature. aa5 MDM: 11:11 Patient medically screened. kb 18:54 Data reviewed: vital signs, nurses notes. Data interpreted: Pulse oximetry: on room air kb is 96 %. Interpretation: normal. Counseling: I had a detailed discussion with the patient and/or guardian regarding: the historical points, exam findings, and any diagnostic results supporting the discharge/admit diagnosis, lab results, radiology results, the need for outpatient follow up, a family practitioner, to return to the emergency department if symptoms worsen or persist or if there are any questions or concerns that arise at home. 09/09 11:11 Order name: Basic Metabolic Panel; Complete Time: 12:16 kb 09/09 11:11 Order name: CBC with Diff; Complete Time: 11:54 kb 09/09 11:11 Order name: Ckmb; Complete Time: 12:16 kb 09/09 11:11 Order name: CPK; Complete Time: 12:16 kb 09/09 11:11 Order name: Hepatic Function; Complete Time: 12:16 kb 09/09 11:11 Order name: Lipase; Complete Time: 12:16 kb 09/09 11:11 Order name: Magnesium; Complete Time: 12:16 kb 09/09 11:11 Order name: Protime (+inr); Complete Time: 11:54 kb 09/09 11:11 Order name: Ptt, Activated; Complete Time: 11:54 kb 09/09 11:21 Order name: CT Head Brain wo Cont; Complete Time: 12:16 kb 09/09 11:21 Order name: Humerus Right XRAY; Complete Time: 12:23 kb 09/09 11:21 Order name: Forearm Right XRAY; Complete Time: 12:28 kb 09/09 11:11 Order name: EKG; Complete Time: 11:12 kb 09/09 11:11 Order name: Cardiac monitoring; Complete Time: 11:49 kb 09/09 11:11 Order name: EKG - Nurse/Tech; Complete Time: 11:49 kb 09/09 11:11 Order name: IV Saline Lock; Complete Time: 11:26 kb 09/09 11:11 Order name: Labs collected and sent; Complete Time: 11:26 kb 09/09 11:11 Order name: NPO; Complete Time: 11:26 kb 09/09 11:11 Order name: O2 Per Protocol; Complete Time: 11:26 kb 09/09 11:11 Order name: O2 Sat Monitoring; Complete Time: :26 kb 09/09 11:21 Order name: Wound Care; Complete Time: 13:35 kb 09/09 12:30 Order name: Sugar Tong Forearm Splint; Complete Time: 14:06 kb 09/09 12:34 Order name: Sling; Complete Time: 14:06 kb Administered Medications: 11:45 Drug: Zofran (Ondansetron) 4 mg Route: IVP; Site: left forearm; ll1 13:36 Follow up: Response: No adverse reaction vg1 11:46 Drug: morphine 2 mg Route: IVP; Site: left forearm; ll1 13:36 Follow up: Response: Pain is unchanged, physician notified vg1 11:48 Drug: Tetanus-Diphtheria Toxoid Adult 0.5 ml {Car Varnisher: [employer]. Exp: ll1 11/12/2021. Lot #: [id number]. } Route: IM; Site: left deltoid; 13:36 Follow up: Response: No adverse reaction vg1 13:56 Drug: morphine 2 mg Route: IVP; Site: left wrist; vg1 14:05 Follow up: Response: Medication administered at discharge. vg1 Disposition: 09/09/20 13:31 Discharged to Home. Impression: Syncope and collapse, Displaced fracture of distal radius. - Condition is Stable. - Discharge Instructions: Forearm Fracture, [id number], Syncope, [id number], Vasovagal Syncope, Adult. - Prescriptions for Tramadol 50 mg Oral Tablet - take 1 tablet by ORAL route every 8 hours as needed; 12 tablet. - Medication Reconciliation Form, Thank You Letter, Antibiotic Education, Prescription Opioid Use form. - Follow up: Emergency Department; When: As needed; Reason: Worsening of condition. Follow up: Private Physician; When: 2 - 3 days; Reason: Recheck today's complaints, Continuance of care, Re-evaluation by your physician. Addendum: 09/11/2020 14:32 Co-signature as Attending Physician, Charles Goodrich MD I agree with the assessment and k dr plan of care. Signatures: Dispatcher [employer] EDOR Kacie Kurtz, EDUCATION PROGRAM ASSOCIATE-C EDUCATION PROGRAM ASSOCIATE-Ckb Charles Goodrich MD MD [facility] Terrie Carlos RN RN aa5 Angie Hayes RN RN vg1 Karl Wadsworth RN RN ll1 Corrections: (The following items were deleted from the chart) 09/09 14:06 13:31 09/09/2020 13:31 Discharged to Home. Impression: Syncope and collapse; Displaced vg1 fracture of distal radius. Condition is Stable. Forms are Medication Reconciliation Form, Thank You Letter, Antibiotic Education, Prescription Opioid Use. Follow up: Emergency Department; When: As needed; Reason: Worsening of condition. Follow up: Private Physician; When: 2 - 3 days; Reason: Recheck today's complaints, Continuance of care, Re-evaluation by your physician. kb
[2020-09-09 14:11] VITALS: TEMP 96.1
[2020-09-09 14:13] VITALS: BP 127/103; O2SAT 96
--- NOTE | 2020-09-11 07:56 | EKG ---
Test Date: 2020-09-09 Test Time: 11:48:27 Shearing Machine Feeder: VALDO MEASUREMENT RESULTS: Intervals: Rate: 49 AK: 290 QRSD: 70 QT: 492 QTc: 444 [place]: P: 78 AK: 290 QRS: 49 T: 15 INTERPRETIVE STATEMENTS: Marked sinus bradycardia with 1st degree AV block Septal infarct, age undetermined Abnormal ECG Compared to ECG 12/21/2018 18:21:59 Sinus rhythm no longer present Ventricular premature complex(es) no longer present Myocardial infarct finding still present Electronically Signed On 09-11-20 07:53:24 REHABILITATION INSPECTOR by Irvin Stallings
== END 2020-09-09 14:06 | disposition home or self-care (01) ==
LOC: ER 11:03
PROC: 2W3CX1Z Immobilization of Right Lower Arm using Splint (ICD-10-PCS; principal; 2020-09-09)
DX: S52.501A Unspecified fracture of the lower end of right radius, initial encounter for closed fracture (principal); I10 Essential (primary) hypertension; Z23 Encounter for immunization; Z91.02 Food additives allergy status; Z91.048 Other nonmedicinal substance allergy status
CPT/HCPCS: 93005; 85025; 80048; 36415; 83735; 82550; 85610; 80076; 85730; 82553; 83690; 70450; 73090; 73060; 90471; 90714; 99284; 29125; J2270 ×2; J2405